=== PATIENT | male | born 1980 | race African-American/Black ===

== ENCOUNTER 2019-09-03 08:16 | Outpatient (CLI) | payer OTHER, SELFPAY ==
[2019-09-03 08:34] LABS: Basophils Percent Auto 0.6 % (0.2-1.2); Eosinophils Absolute Auto 0.1 K/mm3 (0-0.3); Eosinophils Percent Auto 1.5 % (0-4.4); Hematocrit 45.1 % (42.0-52.0); Hemoglobin 13.7 g/dL (14.0-18.0); Immature Granulocyte Absolute 0.02 K/mm3 (0.00-0.031); Immature Granulocyte Percent A 0.3 % (0-0.5); Lymphocytes Absolute Auto 2.11 K/mm3 (0.9-3.2); Lymphocytes Percent Auto 29.4 % (18.3-44.2); Mean Corpuscular HGB Conc 30.4 g/dl (32-36); Mean Corpuscular Hemoglobin 22.2 pg (26-34); Mean Corpuscular Volume 73.1 fl (80-100); Mean Platelet Volume 10.4 fl (7.4-10.4); Monocytes Absolute Auto 0.5 K/mm3 (0.1-0.6); Monocytes Percent Auto 6.7 % (2.6-8.5); Neutrophils Absolute Auto 4.4 K/mm3 (1.3-6.7); Neutrophils Percent Auto 61.5 % (45.5-73.1); Platelet Count Result 244 k/mm3 (150-375); Red Blood Count 6.17 M/mm3 (4.6-6.20); Red Cell Distribution Width 19.1 % (11.5-14.5); White Blood Count 7.2 K/mm3 (4.5-10.0)
[2019-09-03 12:05] LABS: Iron 74 ug/dL (49-181)
[2019-09-03 12:15] LABS: Blood Urea Nitrogen 17 mg/dL (9-20); Calcium 9.2 mg/dL (8.4-10.2); Carbon Dioxide 28 mmol/L (22-30); Chloride 103 mmol/L (98-107); Estimated Glomerular Filt Rate > 60; Glucose 127 mg/dL (75-110); Sodium 139 mmol/L (137-145)
[2019-09-03 12:17] LABS: Percent Iron Saturation 24 % (20-50)
== END 2019-09-03 08:17 | disposition home or self-care (01) ==
PROVIDERS: PCP Emergency Medicine; Visit Provider Internal Medicine Hematology & Oncology
DX: D64.9 Anemia, unspecified (principal)
CPT/HCPCS: 36415; 80048; 82728; 83540; 83550; 85025

== ENCOUNTER 2020-03-02 10:52 | Outpatient (CLI) | payer OTHER, SELFPAY ==
[2020-03-02 11:15] LABS: Basophils Percent Auto 0.6 % (0.2-1.2); Eosinophils Absolute Auto 0.1 K/mm3 (0-0.3); Eosinophils Percent Auto 1.1 % (0-4.4); Hemoglobin 13.9 g/dL (14.0-18.0); Immature Granulocyte Absolute 0.01 K/mm3 (0.00-0.031); Immature Granulocyte Percent A 0.2 % (0-0.5); Lymphocytes Percent Auto 31.2 % (18.3-44.2); Mean Corpuscular HGB Conc 30.2 g/dl (32-36); Mean Corpuscular Hemoglobin 22.2 pg (26-34); Mean Corpuscular Volume 73.6 fl (80-100); Mean Platelet Volume 10.2 fl (7.4-10.4); Monocytes Absolute Auto 0.5 K/mm3 (0.1-0.6); Monocytes Percent Auto 8.4 % (2.6-8.5); Neutrophils Absolute Auto 3.2 K/mm3 (1.3-6.7); Neutrophils Percent Auto 58.5 % (45.5-73.1); Platelet Count Result 253 k/mm3 (150-375); Red Blood Count 6.25 M/mm3 (4.6-6.20); White Blood Count 5.5 K/mm3 (4.5-10.0)
[2020-03-02 12:47] LABS: Anion Gap 7 mmol/L (8-16); Blood Urea Nitrogen 15 mg/dL (9-20); Calcium 9.7 mg/dL (8.4-10.2); Carbon Dioxide 31 mmol/L (22-30); Chloride 102 mmol/L (98-107); Estimated Glomerular Filt Rate > 60; Glucose 120 mg/dL (75-110); Potassium 4.3 mmol/L (3.4-5.0); Sodium 140 mmol/L (137-145)
[2020-03-02 15:49] LABS: Iron 68 ug/dL (49-181)
[2020-03-02 16:01] LABS: Percent Iron Saturation 22 % (20-50)
== END 2020-03-02 10:53 | disposition home or self-care (01) ==
PROVIDERS: PCP Emergency Medicine; Visit Provider Internal Medicine Hematology & Oncology
DX: D64.9 Anemia, unspecified (principal)
CPT/HCPCS: 36415; 80048; 82728; 83540; 83550; 85025

== ENCOUNTER 2020-08-23 13:39 | Outpatient (CLI) | payer OTHER, SELFPAY ==
[2020-08-23 13:56] LABS: Basophils Percent Auto 0.5 % (0.2-1.2); Eosinophils Percent Auto 0.7 % (0-4.4); Hematocrit 44.5 % (42.0-52.0); Hemoglobin 13.8 g/dL (14.0-18.0); Immature Granulocyte Absolute 0.02 K/mm3 (0.00-0.031); Immature Granulocyte Percent A 0.4 % (0-0.5); Lymphocytes Absolute Auto 1.54 K/mm3 (0.9-3.2); Lymphocytes Percent Auto 28.2 % (18.3-44.2); Mean Corpuscular Hemoglobin 22.6 pg (26-34); Mean Platelet Volume 10.8 fl (7.4-10.4); Monocytes Absolute Auto 0.6 K/mm3 (0.1-0.6); Monocytes Percent Auto 11.7 % (2.6-8.5); Neutrophils Absolute Auto 3.2 K/mm3 (1.3-6.7); Neutrophils Percent Auto 58.5 % (45.5-73.1); Platelet Count Result 253 k/mm3 (150-375); Red Cell Distribution Width 18.1 % (11.5-14.5); White Blood Count 5.5 K/mm3 (4.5-10.0)
[2020-08-23 17:36] LABS: Iron 62 ug/dL (49-181)
[2020-08-23 17:38] LABS: Alanine Aminotransferase 24 U/L (4-50); Albumin Level 4.1 g/dL (3.5-5.1); Alkaline Phosphatase 47 U/L (38-126); Anion Gap 9 mmol/L (8-16); Aspartate Amino Transferase 19 U/L (17-59); Bilirubin,Total 0.4 mg/dL (0.2-1.3); Blood Urea Nitrogen 15 mg/dL (9-20); Calcium 9.8 mg/dL (8.4-10.2); Carbon Dioxide 27 mmol/L (22-30); Chloride 105 mmol/L (98-107); Estimated Glomerular Filt Rate > 60; Glucose 104 mg/dL (75-110); Potassium 4.1 mmol/L (3.4-5.0); Sodium 141 mmol/L (137-145)
[2020-08-23 17:46] LABS: Percent Iron Saturation 22 % (20-50)
== END 2020-08-23 13:40 | disposition home or self-care (01) ==
LOC: ANHLAB 13:46
PROVIDERS: PCP Emergency Medicine; Visit Provider Internal Medicine Hematology & Oncology
DX: D64.9 Anemia, unspecified (principal); D56.3 Thalassemia minor
CPT/HCPCS: 36415; 80053; 82728; 83540; 83550; 85025

== ENCOUNTER 2022-03-14 09:05 | Outpatient (CLI) | payer OTHER, SELFPAY ==
[2022-03-14 14:09] LABS: Basophils Percent Auto 0.6 % (0.2-1.2); Eosinophils Absolute Auto 0.1 K/mm3 (0-0.3); Eosinophils Percent Auto 1.4 % (0-4.4); Hematocrit 42.8 % (42.0-52.0); Hemoglobin 13.3 g/dL (14.0-18.0); Immature Granulocyte Absolute 0.02 K/mm3 (0.00-0.031); Immature Granulocyte Percent A 0.4 % (0-0.5); Lymphocytes Absolute Auto 1.53 K/mm3 (0.9-3.2); Lymphocytes Percent Auto 31.5 % (18.3-44.2); Mean Corpuscular HGB Conc 31.1 g/dl (32-36); Mean Corpuscular Hemoglobin 23.3 pg (26-34); Mean Corpuscular Volume 74.8 fl (80-100); Mean Platelet Volume 11.7 fl (7.4-10.4); Monocytes Absolute Auto 0.4 K/mm3 (0.1-0.6); Monocytes Percent Auto 8.6 % (2.6-8.5); Neutrophils Absolute Auto 2.8 K/mm3 (1.3-6.7); Neutrophils Percent Auto 57.5 % (45.5-73.1); Platelet Count Result 209 k/mm3 (150-375); Red Blood Count 5.72 M/mm3 (4.6-6.20); Red Cell Distribution Width 17.2 % (11.5-14.5); White Blood Count 4.9 K/mm3 (4.5-10.0)
[2022-03-14 16:19] LABS: Iron 57 ug/dL (49-181)
[2022-03-14 16:22] LABS: Alanine Aminotransferase 40 U/L (6-50); Albumin Level 4.2 g/dL (3.5-5.1); Alkaline Phosphatase 53 U/L (38-126); Anion Gap 6 mmol/L (8-16); Aspartate Amino Transferase 23 U/L (17-59); Bilirubin,Total 0.3 mg/dL (0.2-1.3); Blood Urea Nitrogen 13 mg/dL (9-20); Calcium 8.7 mg/dL (8.4-10.2); Carbon Dioxide 31 mmol/L (22-30); Chloride 104 mmol/L (98-107); Estimated Glomerular Filt Rate > 60; Glucose 93 mg/dL (65-110); Potassium 3.9 mmol/L (3.4-5.0); Sodium 141 mmol/L (137-145)
[2022-03-14 16:29] LABS: Percent Iron Saturation 21 % (20-50)
== END 2022-03-14 09:06 | disposition home or self-care (01) ==
LOC: ANHLAB 09:08
PROVIDERS: PCP Emergency Medicine; Visit Provider Internal Medicine Hematology & Oncology
DX: D50.8 Other iron deficiency anemias (principal)
CPT/HCPCS: 36415; 80053; 82728; 83540; 83550; 85025

== ENCOUNTER 2023-05-02 12:26 | Outpatient (CLI) | payer OTHER, SELFPAY ==
[2023-05-02 12:41] LABS: Basophils Percent Auto 0.6 % (0.2-1.2); Eosinophils Absolute Auto 0.1 K/mm3 (0-0.3); Eosinophils Percent Auto 1.3 % (0-4.4); Hematocrit 44.7 % (42.0-52.0); Hemoglobin 13.8 g/dL (14.0-18.0); Immature Granulocyte Absolute 0.01 K/mm3 (0.00-0.031); Immature Granulocyte Percent A 0.2 % (0-0.5); Lymphocytes Absolute Auto 1.56 K/mm3 (0.9-3.2); Lymphocytes Percent Auto 33.2 % (18.3-44.2); Mean Corpuscular HGB Conc 30.9 g/dl (32-36); Mean Corpuscular Hemoglobin 22.7 pg (26-34); Mean Corpuscular Volume 73.4 fl (80-100); Mean Platelet Volume 10.4 fl (7.4-10.4); Monocytes Absolute Auto 0.4 K/mm3 (0.1-0.6); Monocytes Percent Auto 9.4 % (2.6-8.5); Neutrophils Absolute Auto 2.6 K/mm3 (1.3-6.7); Neutrophils Percent Auto 55.3 % (45.5-73.1); Platelet Count Result 218 k/mm3 (150-375); Red Blood Count 6.09 M/mm3 (4.6-6.20); White Blood Count 4.7 K/mm3 (4.5-10.0)
[2023-05-02 12:55] LABS: Anisocytosis 1+ (NORMAL); Platelet Estimate Adequate (Adequate); Poikilocytosis 1+ (NORMAL); Schistocytes None Seen (NORMAL); Target Cells 1+ (NORMAL)
[2023-05-02 15:42] LABS: Iron 66 ug/dL (49-181)
[2023-05-02 15:49] LABS: Alanine Aminotransferase 21 U/L (6-50); Alkaline Phosphatase 51 U/L (38-126); Anion Gap 5 mmol/L (8-16); Aspartate Amino Transferase 19 U/L (17-59); Bilirubin,Total 0.7 mg/dL (0.2-1.3); Blood Urea Nitrogen 18 mg/dL (9-20); Calcium 9.3 mg/dL (8.4-10.2); Carbon Dioxide 32 mmol/L (22-30); Chloride 104 mmol/L (98-107); Estimated Glomerular Filt Rate > 60; Glucose 84 mg/dL (65-110); Sodium 141 mmol/L (137-145)
[2023-05-02 15:54] LABS: Percent Iron Saturation 24 % (20-50)
== END 2023-05-02 12:27 | disposition home or self-care (01) ==
LOC: ANHLAB 12:27
PROVIDERS: PCP Emergency Medicine; Visit Provider Internal Medicine Hematology & Oncology
DX: D50.8 Other iron deficiency anemias (principal)
CPT/HCPCS: 36415; 80053; 82607; 82728; 82746; 83540; 83550; 85025

== ENCOUNTER 2024-05-02 10:32 | Outpatient (CLI) | payer OTHER, SELFPAY ==
[2024-05-02 10:46] LABS: Hemoglobin 13.7 g/dL (14.0-18.0); Mean Corpuscular HGB Conc 30.4 g/dl (32-36); Mean Corpuscular Hemoglobin 22.7 pg (26-34); Mean Corpuscular Volume 74.5 fl (80-100); Mean Platelet Volume 10.8 fl (7.4-10.4); Platelet Count Result 228 k/mm3 (150-375); Red Blood Count 6.04 M/mm3 (4.6-6.20); White Blood Count 5.2 K/mm3 (4.5-10.0)
--- OUTSIDE RECORDS SUMMARY | 2024-05-02 10:48 | XMS_ITS | Referral Summary ---
Author Organization [facility] Address [address] [place] [address] Care Team Providers Care Plumbing Warehouse Helper Name Role Phone John Drummond MD Primary Care Provider [phone] Source Comments [facility],non-owned Affiliates and Associated Physician Practices is amultiple site organization consisting of ambulatory clinics and hospital sitesin [place], [place], [place] and [place]. This disclosure is being madepursuant to the Care Everywhere program and may not contain all information available regarding this patient. Last updated 17.[facility] Encounters Date Type Department Care Team Description 04/29/2024 Telephone [facility] - Neurology [address] [facility] [place] [phone] Joellen Albarado MD Medication Prior Auth Request (Dalfampridine) 04/18/2024 Travel 04/18/2024 8:30 AM SOFT SUGAR CUTTER Office Visit [facility] - Cosmetic Dermatology [address] [place] [address] Fariha Javed DO Neoplasm of uncertain behavior of skin (Primary Dx) 02/20/2024 10:57 AM SOFT SUGAR CUTTER - 02/20/2024 11:59 PM SOFT SUGAR CUTTER Hospital Encounter [facility] [address] [place] [phone] Discharge Disposition: Home or Self Care 02/20/2024 Travel 02/20/2024 10:00 AM SOFT SUGAR CUTTER Office Visit [facility] - Neurology [address] [place] [phone] Joellen Albarado MD MS (multiple sclerosis) (HCC) (Primary Dx); Mass on back; Spasticity; Neurologic gait dysfunction 02/11/2024 Travel from Last 3 Months Allergies Active Allergy Reactions Criticality Noted Date Comments Shellfish Allergy Nausea and/or Vomiting Medium 2018 Medications * Be aware that medications may not be up to date on this document. Alwaysverify current medications with the patient. Medication Sig Dispensed Refills Start Date End Date Status folic acid (FOLVITE) 1 MG tablet Take 1 (one) tablet by mouth once daily Active sildenafil (REVATIO) 20 MG tablet Take 1 (one) tablet by mouth once daily as needed 06/06/2020 Active lisinopril (Prinivil; Zestril) 10 MG tablet Take 1 (one) tablet by mouth once daily 04/11/2022 Active baclofen (Lioresal) 10 MG tabletIndications :MS (multiple sclerosis) (HCC),Spasticity Take 2 (two) tablets by mouth once daily May cause drowsiness. 60 tablet 11 02/20/2024 Active dalfampridine ER (Ampyra) 10 MG tabletIndications :MS (multiple sclerosis) (HCC) Take 1 (one) tablet by mouth 2 times daily 180 tablet 4 02/20/2024 Active lisinopril (PRINIVIL; ZESTRIL) 20 MG tablet Take 1 tablet by mouth once daily 05/07/2018 04/18/2024 Discontinued (List Clean-Up) omeprazole (PRILOSEC) 20 MG capsule TAKE 1 CAPSULE BY MOUTH ONCE DAILY 30 MINUTES BEFORE MORNING MEAL 06/21/2020 04/18/2024 Discontinued (List Clean-Up) Active Problems Problem Noted Date Diagnosed Date HTN (hypertension) 05/05/2018 DM (diabetes mellitus) 05/05/2018 Hyperlipidemia 05/05/2018 Low back pain 05/05/2018 MRSA (methicillin resistant staph aureus) cultur e positive 05/05/2018 Multiple sclerosis 05/01/2018 Social History Tobacco Use Types Packs/Day Years Used Date Smoking Tobacco: Former Cigarettes Smokeless Tobacco: Never Tobacco Cessation:Counseling Given: Not Answered Alcohol Use Standard Drinks/Week Comments Yes 0 (1 standard drink = 0.6 oz pur e alcohol) occassionally- rarely Sex and Gender Information Value Date Recorded Sex Assigned at Not on file Gender Identity Not on file Sexual Orientation Not on file Last Filed Vital Signs Vital Sign Reading Time Taken Comments Blood Pressure 122/86 02/20/2024 9:38 AM SOFT SUGAR CUTTER Pulse 78 02/20/2024 9:38 AM SOFT SUGAR CUTTER Temperature 36.6 C (97.8 F) 12/07/2023 8:00 AM CDT Respiratory Rate 20 12/07/2023 8:00 AM CDT Oxygen Saturation 98% 02/20/2024 9:38 AM SOFT SUGAR CUTTER Inhaled Oxygen Concentration - - Weight 147.4 kg (325 lb) 02/20/2024 9:38 AM SOFT SUGAR CUTTER Height 193 cm (6' 4 ) 08/31/2023 2:10 PM CDT Body Mass Index 39.56 08/31/2023 2:10 PM CDT Functional Status Functional Status Response Date of Assess ment Is person deaf or have serious hearing difficult y? No 05/09/2018 Is person blind or have serious difficulty seein g? No 05/09/2018 Does person have serious dif ficulty walking/climbing stairs? Yes 05/09/2018 Does person have difficulty dressing/bathing? Ye s 05/09/2018 Does person have difficulty doing errands alone? Yes 05/09/2018 Cognitive Status Response Date of Assessm ent Does person have difficulty concentrating/remembering/making decisions? No 05/09/2018 Plan of Treatment Upcoming Encounters Date Type Department Care Team (Late st Contact Info) Description 05/23/2024 8:50 AM SOFT SUGAR CUTTER Appointment [facility] [address] [place] [phone] John Drummond MD [address] [place] [address] Procedures Procedure Name Priority Date/Time Associated Diagnosis Comments FLOW CYTOMETRY RITUXAN BLOOD Routine 02/20/2024 11:50 AM SOFT SUGAR CUTTER MS (multiple sclerosis) (HCC) COMPREHENSIVE METABOLIC PANEL Routine 02/20/2024 11:50 AM SOFT SUGAR CUTTER MS (multiple sclerosis) (HCC) CBC W AUTO DIFFERENTIAL Routine 02/20/2024 11:50 AM SOFT SUGAR CUTTER MS (multiple sclerosis) (HCC) HEPATITIS C ANTIBODY Routine 01/24/2019 5:23 PM SOFT SUGAR CUTTER Multiple sclerosis (HCC) HEMOGLOBIN A1C Routine 05/05/2018 3:48 AM SOFT SUGAR CUTTER from Last 3 Months or Most Recently Relevant to Health Maintenance Results * FLOW CYTOMETRY RITUXAN BLOOD (02/20/2024 11:50 AM SOFT SUGAR CUTTER) Reason for test MS (multiple sclerosis) (HCC) 340 02/20/2024 3:59 PM [facility] Client Specimen ID # [id number] 02/20/2024 3:59 PM [facility] Number of Markers 7 02/20/2024 3:59 PM [facility] Flow Cytometry Results Differential Result Comment WBC Count /uL 4,900 % Lymphocytes 39 Lymphocyte Count u/L 1,911 Cell Region A: Lymphocytes Surface Marker Results % Absolute Count (cells/uL) CD3 79 1,510 CD3+CD4+ 52 994 CD3+CD8+ 26 497 CD4:CD8 Ratio 2.00 CD19 0 0 CD20 0 0 CD45 100 1,911 CD56 19 363 02/20/2024 3:59 PM [facility] Flow Cytometry Interpretation Testing is technical only and does not require an interpretation of results. 02/20/2024 3:59 PM [facility] Reference Range Adult Normal Reference Range Adult (> 18 years) CD3 54-84 % CD4 33-63 % CD8 12-39 % CD19 5-19 % CD56 6-26 % CD4+CD45RA+ 30-50 % CD4+CD45RO+ 17-42 % CD19+CD27+ 7-48 % CD19+CD27+IgD+ 7-29 % CD19+CD27+IgD- 3-23 % CD19+YH34-AaD+ 29-93 % % 02/20/2024 3:59 PM [facility] Disclaimer Test performed at [facility], [address] [place] [address], [id number]. This test was developed and its performance characteristics determined by the Flow Cytometry Laboratory. It has not been cleared by the [place] Food and Drug Administration (FDA). The FDA has determined that such clearance or approval is not necessary. This test is used for clinical purposes. It should not be regarded as investigational or for research. This laboratory is regulated under the Clinical Laboratory Improvement Amendments of 1998 (CLIA) as a qualified to perform high complexity clinical testing. By law [place], CD4 lymphocyte counts on patients with HIV infection must be reported by the physician to the [facility] authority. 02/20/2024 3:59 PM [facility] Embedded Images 3:59 PM [facility] Blood BLOOD SPECIMEN / Unknown Lab Venipuncture / Unknown 02/20/2024 11:50 AM SOFT SUGAR CUTTER 02/20/2024 1:58 PM SOFT SUGAR CUTTER Joellen Albarado MD LAB - PATHOLOGY/CY TOLOGY ORDERABLES Performing Organization Address [facility] de Phone Number [facility] [address] [phone] * (ABNORMAL) CBC W/ DIFFERENTIAL (02/20/2024 11:50 AM SOFT SUGAR CUTTER) WBC 4.9 4.0 - 10.7 x10E9/L 02/20/2024 12:06 PM [facility] RBC Count 6.32(H) 4.30 - 5.80 x10E12/L 02/20/2024 12:06 PM [facility] Hemoglobin 14.1 13.3 - 17.5 g/dL 02/20/2024 12:06 PM [facility] Hematocrit 45.6 38.7 - 51.1 % 02/20/2024 12:06 PM [facility] MCV 72.2(L) 80.0 - 98.0 fL 02/20/2024 12:06 PM [facility] MCH 22.3(L) 26.7 - 33.6 pg 02/20/2024 12:06 PM [facility] MCHC 30.9(L) 31.7 - 36.3 g/dL 02/20/2024 12:06 PM [facility] RDW-CV 18.2(H) 11.3 - 14.8 % 02/20/2024 12:06 PM [facility] Platelet Count 242 150 - 420 x10E9/L 02/20/2024 12:06 PM [facility] MPV 10.5 7.8 - 11.4 fL 02/20/2024 12:06 PM [facility] Neutrophil % 53.2 41.0 - 74.0 % 02/20/2024 12:06 PM [facility] Lymphocyte % 34.6 17.0 - 47.0 % 02/20/2024 12:06 PM [facility] Monocyte % 9.3 3.0 - 11.0 % 02/20/2024 12:06 PM [facility] Eosinophil % 1.9 0.0 - 7.0 % 02/20/2024 12:06 PM [facility] Basophil % 0.8 0.0 - 1.6 % 02/20/2024 12:06 PM [facility] Immature Granulocytes % 0.2 0.0 - 1.0 % 02/20/2024 12:06 PM [facility] Neutrophil Absolute 2.58 1.60 - 7.50 x10E9/L 02/20/2024 12:06 PM [facility] Lymphocyte Absolute 1.68 1.00 - 4.40 x10E9/L 02/20/2024 12:06 PM [facility] Monocyte Absolute 0.45 0.15 - 1.00 x10E9/L 02/20/2024 12:06 PM [facility] Eosinophil Absolute 0.09 0.00 - 0.60 x10E9/L 02/20/2024 12:06 PM [facility] Basophil Absolute 0.04 0.00 - 0.13 x10E9/L 02/20/2024 12:06 PM [facility] Blood BLOOD SPECIMEN / Unknown Lab Venipuncture / Unknown 02/20/2024 11:50 AM SOFT SUGAR CUTTER 02/20/2024 12:00 PM SOFT SUGAR CUTTER Joellen Albarado MD LAB - HEMATOLOGY O RDERABLES [facility] [address] [place] [address], [facility] [phone] * (ABNORMAL) COMPREHENSIVE METABOLIC PANEL (02/20/2024 11:50 AM SOFT SUGAR CUTTER) BUN 11 7 - 26 mg/dL 02/20/2024 12:36 PM [facility] Creatinine 1.26(H) 0.71 - 1.16 mg/dL 02/20/2024 12:36 PM [facility] Sodium 142 136 - 145 mmol/L 02/20/2024 12:36 PM [facility] Potassium 4.0 3.5 - 4.5 mmol/L 02/20/2024 12:36 PM [facility] Chloride 106 98 - 107 mmol/L 02/20/2024 12:36 PM [facility] CO2 28 22 - 29 mmol/L 02/20/2024 12:36 PM [facility] Glucose 91 70 - 99 mg/dL 02/20/2024 12:36 PM [facility] Calcium 9.0 8.4 - 10.2 mg/dL 02/20/2024 12:36 PM [facility] Protein Total 7.4 6.0 - 8.3 g/dL 02/20/2024 12:36 PM [facility] Albumin 3.9 3.4 - 5.0 g/dL 02/20/2024 12:36 PM [facility] Bilirubin Total 0.6 0.2 - 1.2 mg/dL 02/20/2024 12:36 PM [facility] Alkaline Phosphatase 54 40 - 150 U/L 02/20/2024 12:36 PM [facility] ALT 28 5 - 55 U/L 02/20/2024 12:36 PM [facility] AST 14 5 - 34 U/L 02/20/2024 12:36 PM [facility] Anion Gap 8 6 - 16 02/20/2024 12:36 PM [facility] BUN/Creatinine Ratio 9 7 - 23 02/20/2024 12:36 PM [facility] Osmolality Calculated 293 275 - 295 mOsm/kg 02/20/2024 12:36 PM [facility] Albumin/Globulin Ratio 1.1 1.1 - 2.3 02/20/2024 12:36 PM [facility] eGFR by CKD-EPI 73(L) >=90 mL/min/1.7 3 m2 02/20/2024 12:36 PM [facility] Blood BLOOD SPECIMEN / Unknown Lab Venipuncture / Unknown 02/20/2024 11:50 AM SOFT SUGAR CUTTER 02/20/2024 12:00 PM SOFT SUGAR CUTTER Joellen Albarado MD LAB - CHEMISTRY OR DERABLES Performing Organization Address City/[facility]/ZIP Co de Phone Number [facility] [address] [place] [address], [facility] [phone] * HEPATITIS C ANTIBODY (01/24/2019 5:23 PM SOFT SUGAR CUTTER) Pathologist [facility] Hepatitis C Antibody Non-react ame Non-reac tive 01/24/2019 6:14 PM [facility] Comment: Hepatitis C Antibody screen indicates no serologic evidence of past or current infection with Hepatitis C Virus. Patients with unexplained liver disease who are immunocompromised or suspected of having acute Hepatitis C infection may benefit from Nucleic Acid Test (ROLAND) for Hepatitis C Viral RNA to confirm Hepatitis C status. Blood BLOOD SPECIMEN / Unknown Lab Venipuncture / Unknown 01/24/2019 5:23 PM SOFT SUGAR CUTTER 01/24/2019 5:34 PM SOFT SUGAR CUTTER Arsh Wang MD LAB - CHEMISTRY ORDERABLES Performing Organization Address City/[facility]/ZIP Co de Phone Number [facility] [address] [place] [address], [facility] [phone] * HEMOGLOBIN A1C (05/05/2018 3:48 AM SOFT SUGAR CUTTER) Hemoglobin A1c 6.4 % 05/06/2018 10:32 AM [facility] Comment:Hemoglobin variant d etected. Abnormal hemoglobin may not form glycated product at the same rate as hemoglobin A and/or hemoglobin variant may interfere with the accurate measurement of HbA1C. Consider measurement of HbA1C by alternative method. Recommend hemoglobin electrophoresis to evaluate the variant hemoglobin if clinically indicated. Estimated Average Glucose 137 mg/dL 05/06/2018 10:32 AM SOFT SUGAR CUTTER [facility] Comment: HbA1c Interpretation: Treatment target values recommended by ADA and other clinical organizations should be used to evaluate metabolic control in patients. Treatment Target Values: Normal : < 5.7% Pre-diabetes: 5.7-6.4% Diabetes: Equal to or greater than 6.5% Reference: [place] [employer] Standards of Care in Diabetes -2014 In patients 70 years and older consider HbA1c target range of 7.0-7.5% Reference: Diabetes Mellitus in Older People: Position Statement on behalf of the International Association of Gerontology and Geriatrics (IAGG), the Diabetes Working [employer] Party for Older People (EDWPOP), and the International Task Force of Experts in Diabetes. Melchor Bingham, et al. J [place] [employer]. 2012 Test results diagnostic of diabetes should be repeated for confirmation. The Sebia Capillary 2 assay for the measurement of HbA1c is a National Glycohemoglobin Standardization Program (NGSP)certified method. Blood BLOOD SPECIMEN / Unknown Lab Venipuncture / Unknown 05/05/2018 3:48 AM SOFT SUGAR CUTTER 05/05/2018 3:54 AM SOFT SUGAR CUTTER Magdiel Thompson MD LAB - CHEMISTRY NEHAL SCHROEDER [facility] Organization Address City/State/ZIP Co de Phone Number [address] [phone] from Last 3 Months or Most Recently Relevant to Health Maintenance Advance Directives * Full Code (Latest Code Status on File) Date Activated Date Inactivated Comments 05/05/2018 12:50 AM 05/09/2018 3:01 PM Care Teams Plumbing Warehouse Helper Relationship Specialty Start Date End Date John Drummond MD [address] [place] [id number] PCP - General 04/16/18
--- OUTSIDE RECORDS SUMMARY | 2024-05-02 10:48 | XMS_ITS | Patient Health Summary ---
Author Organization [facility] Address [address] [place] [address] Care Team Providers Care Grain Picker Name Role Phone John Drummond MD Primary Care Provider [phone] Note from [facility],non-owned Affiliates and Associated Physician Practices is amultiple site organization consisting of ambulatory clinics and hospital sitesin [place], [place], [place] and [place]. This disclosure is being madepursuant to the Care Everywhere program and may not contain all information available regarding this patient. Last updated 17.[facility] Allergies * Shellfish Allergy(Nausea and/or Vomiting) -Medium Criticality Medications * Be aware that medications may not be up to date on this document. Alwaysverify current medications with the patient. * folic acid (FOLVITE) 1 MG tablet Take 1 (one) tablet by mouth once daily * sildenafil (REVATIO) 20 MG tablet(Started 06/06/2020) Take 1 (one) tablet by mouth once daily as needed * lisinopril (Prinivil; Zestril) 10 MG tablet(Started 04/11/2022) Take 1 (one) tablet by mouth once daily * baclofen (Lioresal) 10 MG tablet(Started 02/20/2024) Take 2 (two) tablets by mouth once daily May cause drowsiness. 11 refills by 02/19/2025 * dalfampridine ER (Ampyra) 10 MG tablet(Started 02/20/2024) Take 1 (one) tablet by mouth 2 times daily 4 refills by 02/19/2025 Ended Medications* lisinopril (PRINIVIL; ZESTRIL) 20 MG tablet(Started 05/07/2018)(Discontinued) Take 1 tablet by mouth once daily * omeprazole (PRILOSEC) 20 MG capsule(Started 06/21/2020)(Discontinued) TAKE 1 CAPSULE BY MOUTH ONCE DAILY 30 MINUTES BEFORE MORNING MEAL Active Problems Problem Noted Date Diagnosed Date [...] Comments Blood Pressure 122/86 02/20/2024 9:38 AM DELIVERY MAN Pulse 78 02/20/2024 9:38 AM DELIVERY MAN Temperature 36.6 C (97.8 F) 12/07/2023 8:00 AM CDT Respiratory Rate 20 12/07/2023 8:00 AM CDT Oxygen Saturation 98% 02/20/2024 9:38 AM DELIVERY MAN Inhaled Oxygen Concentration - - Weight 147.4 kg (325 lb) 02/20/2024 9:38 AM DELIVERY MAN Height 193 cm (6' 4 ) 08/31/2023 2:10 PM CDT Body Mass Index 39.56 08/31/2023 2:10 PM CDT Procedures * FLOW CYTOMETRY RITUXAN BLOOD(Performed 02/20/2024) Performed for MS (multiple sclerosis) ([facility]) * COMPREHENSIVE METABOLIC PANEL(Performed 02/20/2024) Performed for MS (multiple sclerosis) ([facility]) * CBC W AUTO DIFFERENTIAL(Performed 02/20/2024) Performed for MS (multiple sclerosis) ([facility]) * CBC W AUTO DIFFERENTIAL(Performed 11/23/2023) * MRI THORACIC SPINE WWO CONT(Performed 09/23/2023) Performed for MS (multiple sclerosis) ([facility]) * MRI CERVICAL SPINE WWO CONT(Performed 09/23/2023) Performed for MS (multiple sclerosis) ([facility]) * MRI BRAIN WWO CONTRAST(Performed 09/23/2023) Performed for MS (multiple sclerosis) ([facility]) * CREATININE - POCT INTERFACED(Performed 09/23/2023) * FLOW CYTOMETRY RITUXAN BLOOD(Performed 11/10/2022) Performed for MS (multiple sclerosis) ([facility]), On rituximab therapy * COMPREHENSIVE METABOLIC PANEL(Performed 11/10/2022) Performed for MS (multiple sclerosis) ([facility]), On rituximab therapy * CBC W AUTO DIFFERENTIAL(Performed 11/10/2022) Performed for MS (multiple sclerosis) ([facility]), On rituximab therapy * IGM BLOOD(Performed 05/05/2022) Performed for Visit for monitoring Rituxan therapy, MS (multiple sclerosis) ([facility]) * IGA BLOOD(Performed 05/05/2022) Performed for Visit for monitoring Rituxan therapy, MS (multiple sclerosis) ([facility]) * IGG BLOOD(Performed 05/05/2022) Performed for Visit for monitoring Rituxan therapy, MS (multiple sclerosis) ([facility]) * COMPREHENSIVE METABOLIC PANEL(Performed 05/05/2022) Performed for Visit for monitoring Rituxan therapy, MS (multiple sclerosis) ([facility]) * CBC W AUTO DIFFERENTIAL(Performed 05/05/2022) Performed for Visit for monitoring Rituxan therapy, MS (multiple sclerosis) ([facility]) * MRI BRAIN WWO CONTRAST(Performed 10/23/2021) Performed for MS (multiple sclerosis) ([facility]) * VITAMIN D 25-HYDROXY(Performed 10/03/2021) Performed for MS (multiple sclerosis) ([facility]), Hypovitaminosis D * COMPREHENSIVE METABOLIC PANEL(Performed 10/03/2021) Performed for MS (multiple sclerosis) ([facility]) * CBC W AUTO DIFFERENTIAL(Performed 10/03/2021) Performed for MS (multiple sclerosis) ([facility]) * COMPREHENSIVE METABOLIC PANEL(Performed 04/08/2021) Performed for Multiple sclerosis ([facility]), Visit for monitoring Rituxan therapy * IMMUNOGLOBULINS IGG/IGM/IGA PANEL(Performed 03/30/2021) Performed for Multiple sclerosis ([facility]), Visit for monitoring Rituxan therapy * COMPREHENSIVE METABOLIC PANEL(Performed 03/30/2021) Performed for MS (multiple sclerosis) (HCC) * CBC W AUTO DIFFERENTIAL(Performed 03/30/2021) Performed for MS (multiple sclerosis) (HCC) * FLOW CYTOMETRY RITUXAN BLOOD(Performed 09/03/2020) Performed for Visit for monitoring Rituxan therapy * COMPREHENSIVE METABOLIC PANEL(Performed 09/03/2020) Performed for Multiple sclerosis (HCC) * CBC W AUTO DIFFERENTIAL(Performed 09/03/2020) Performed for Multiple sclerosis (HCC) * MRI BRAIN WWO CONTRAST(Performed 06/24/2020) Performed for Multiple sclerosis (HCC) * MRI CERVICAL SPINE WWO CONT(Performed 06/24/2020) Performed for Multiple sclerosis (HCC) * CREATININE - POCT INTERFACED(Performed 06/24/2020) * IGM BLOOD(Performed 03/05/2020) Performed for Visit for monitoring Rituxan therapy * IGG BLOOD(Performed 03/05/2020) Performed for Visit for monitoring Rituxan therapy * IGA BLOOD(Performed 03/05/2020) Performed for Visit for monitoring Rituxan therapy * COMPREHENSIVE METABOLIC PANEL(Performed 03/05/2020) Performed for Multiple sclerosis (HCC) * CBC W AUTO DIFFERENTIAL(Performed 03/05/2020) Performed for Multiple sclerosis (HCC) * MRI CERVICAL SPINE WWO CONT(Performed 02/15/2019) Performed for Multiple sclerosis (HCC) * MRI BRAIN WWO CONTRAST(Performed 02/15/2019) Performed for Multiple sclerosis (HCC) * MRI THORACIC SPINE WWO CONT(Performed 02/15/2019) Performed for Multiple sclerosis (HCC) * CREATININE BLOOD - POCT (IP) [facility](Performed 02/15/2019) Performed for Multiple sclerosis (HCC) * LAB MISC TEST(Performed 01/24/2019) Performed for Multiple sclerosis (HCC) * HEPATITIS C ANTIBODY(Performed 01/24/2019) Performed for Multiple sclerosis (HCC) * HEPATITIS B SURFACE ANTIBODY(Performed 01/24/2019) Performed for Multiple sclerosis (HCC) * QUANTIFERON-TB GOLD PLUS 4-TUBE(Performed 01/24/2019) Performed for Multiple sclerosis (HCC) * HEPATITIS B SURFACE ANTIGEN W RFLX CONFIRMATION(Performed 01/24/2019) Performed for Therapeutic drug monitoring * HEPATITIS B CORE ANTIBODY TOTAL(Performed 01/24/2019) Performed for Therapeutic drug monitoring * URINALYSIS AUTO - POINT OF CARE (AMB) [facility](Performed 01/17/2019) Performed for Urinary retention * MA MSR PVR U&/BLADD CAPCTY US NON(Performed 01/17/2019) Performed for Urinary retention * MA MSR PVR U&/BLADD CAPCTY US NON(Performed 12/03/2018) Performed for Urinary retention * CARDIAC EKG ORDER(Performed 06/06/2018) * CARDIAC EKG ORDER(Performed 05/13/2018) * CARDIAC EKG ORDER(Performed 05/13/2018) * GLUCOSE - POINT OF CARE(Performed 05/09/2018) * HEPATITIS B SURFACE ANTIBODY(Performed 05/09/2018) * GLUCOSE - POINT OF CARE(Performed 05/09/2018) * GLUCOSE - POINT OF CARE(Performed 05/09/2018) * GLUCOSE - POINT OF CARE(Performed 05/08/2018) * GLUCOSE - POINT OF CARE(Performed 05/08/2018) * GLUCOSE - POINT OF CARE(Performed 05/08/2018) * GLUCOSE - POINT OF CARE(Performed 05/08/2018) * TATIANNA VIRUS PCR QUALITATIVE(Performed 05/08/2018) * DIFFERENTIAL MANUAL(Performed 05/08/2018) * PT-INR [facility](Performed 05/08/2018) * CBC W AUTO DIFFERENTIAL(Performed 05/08/2018) * GLUCOSE - POINT OF CARE(Performed 05/07/2018) * GLUCOSE - POINT OF CARE(Performed 05/07/2018) * GLUCOSE - POINT OF CARE(Performed 05/07/2018) * GLUCOSE - POINT OF CARE(Performed 05/07/2018) * SYPHILIS ANTIBODY CASCADING REFLEX(Performed 05/07/2018) Performed for Multiple sclerosis (HCC), MRSA (methicillin resistant staph aureus) culture positive * VITAMIN E(Performed 05/07/2018) * VITAMIN D 25-HYDROXY(Performed 05/07/2018) * VITAMIN B12(Performed 05/07/2018) * HEPATIC FUNCTION PANEL(Performed 05/07/2018) * TSH(Performed 05/07/2018) * ERYTHROCYTE SEDIMENTATION RATE(Performed 05/07/2018) * SS-A (SJOGREN'S) ANTIBODY(Performed 05/07/2018) * SS-B (SJOGREN'S) ANTIBODY(Performed 05/07/2018) * TOMI BLOOD SCREEN W/REFLEX TITER(Performed 05/07/2018) * PT-INR [facility](Performed 05/07/2018) * CBC W AUTO DIFFERENTIAL(Performed 05/07/2018) * GLUCOSE - POINT OF CARE(Performed 05/07/2018) * GLUCOSE - POINT OF CARE(Performed 05/06/2018) * GLUCOSE - POINT OF CARE(Performed 05/06/2018) * LAB MISC TEST (NOT BLOOD)(Performed 05/06/2018) Performed for Multiple sclerosis (HCC) * GLUCOSE - POINT OF CARE(Performed 05/06/2018) * EKG 12-LEAD(Performed 05/06/2018) Performed for Multiple sclerosis (HCC) * GLUCOSE - POINT OF CARE(Performed 05/06/2018) * PT-INR [facility](Performed 05/06/2018) * CBC W AUTO DIFFERENTIAL(Performed 05/06/2018) * GLUCOSE - POINT OF CARE(Performed 05/06/2018) * GLUCOSE - POINT OF CARE(Performed 05/05/2018) * GLUCOSE - POINT OF CARE(Performed 05/05/2018) * LAB MISC TEST(Performed 05/05/2018) * CYTOLOGY NON-SPORT SHOE SPIKE ASSEMBLER PANEL (STL)(Performed 05/05/2018) Performed for Multiple sclerosis (HCC) * DIFFERENTIAL MANUAL FLUID(Performed 05/05/2018) * MYELIN BASIC PROTEIN CSF(Performed 05/05/2018) * CELL COUNT W DIFFERENTIAL CSF(Performed 05/05/2018) * PROTEIN CSF(Performed 05/05/2018) * GLUCOSE CSF(Performed 05/05/2018) * GRAM STAIN (LAB ORDERED)(Performed 05/05/2018) * CULTURE CSF+GRAM STAIN(Performed 05/05/2018) * CULTURE CSF+GRAM STAIN (BEAKER)(Performed 05/05/2018) * GLUCOSE - POINT OF CARE(Performed 05/05/2018) * URINALYSIS W/MICROSCOPIC NO CULTURE(Performed 05/05/2018) * GLUCOSE - POINT OF CARE(Performed 05/05/2018) * GLUCOSE - POINT OF CARE(Performed 05/05/2018) * HEMOGLOBIN A1C(Performed 05/05/2018) * TSH(Performed 05/05/2018) * PT-INR [facility](Performed 05/05/2018) * PHOSPHORUS BLOOD(Performed 05/05/2018) * MAGNESIUM BLOOD(Performed 05/05/2018) * CBC W AUTO DIFFERENTIAL(Performed 05/05/2018) * COMPREHENSIVE METABOLIC PANEL(Performed 05/05/2018) * GLUCOSE - POINT OF CARE(Performed 05/05/2018) Results * FLOW CYTOMETRY RITUXAN BLOOD (02/20/2024 11:50 AM DELIVERY MAN) Only the most recent of3 resultswithin the time period is included. Reason for test MS (multiple sclerosis) (HCC) 340 02/20/2024 3:59 PM [facility] Client Specimen ID # [id number] 02/20/2024 3:59 PM [facility] Number of Markers 7 02/20/2024 3:59 PM [facility] Flow Cytometry Results Differential Result Comment WBC Count /uL 4,900 % Lymphocytes 39 Lymphocyte Count u/L 1,911 Cell Region A: Lymphocytes Surface Marker Results % Absolute Count (cells/uL) CD3 79 1,510 CD3+CD4+ 52 994 CD3+CD8+ 26 497 CD4:CD8 Ratio 2.00 CD19 0 0 CD20 0 0 CD45 100 1,911 CD56 19 363 02/20/2024 3:59 PM [facility] Flow Cytometry Interpretation Testing is technical only and does not require an interpretation of results. 02/20/2024 3:59 PM [facility] Reference Range Adult Normal Reference Range Adult (> 18 years) CD3 54-84 % CD4 33-63 % CD8 12-39 % CD19 5-19 % CD56 6-26 % CD4+CD45RA+ 30-50 % CD4+CD45RO+ 17-42 % CD19+CD27+ 7-48 % CD19+CD27+IgD+ 7-29 % CD19+CD27+IgD- 3-23 % CD19+PP49-MaC+ 29-93 % % 02/20/2024 3:59 PM [facility] Disclaimer Test performed at [facility], [address] [place] [address], [id number]. This test was developed and its performance [...] perform high complexity clinical testing. By law [place], CD4 lymphocyte counts on patients with HIV infection must be reported by the physician to the [facility] authority. 02/20/2024 3:59 PM [facility] Embedded Images 3:59 PM [facility] Blood BLOOD SPECIMEN / Unknown Lab Venipuncture / Unknown 02/20/2024 11:50 AM DELIVERY MAN 02/20/2024 1:58 PM DELIVERY MAN Joellen Albarado MD LAB - PATHOLOGY/CY TOLOGY ORDERABLES Performing Organization Address City/State/[facility] Co de Phone Number [facility] [address] [phone] * (ABNORMAL) CBC W/ DIFFERENTIAL (02/20/2024 11:50 AM DELIVERY MAN) Only the most recent of12 resultswithin the time period is included. WBC 4.9 4.0 - 10.7 x10E9/L 02/20/2024 12:06 PM [facility] RBC Count 6.32(H) 4.30 - 5.80 x10E12/L 02/20/2024 12:06 PM [facility] Hemoglobin 14.1 13.3 - 17.5 g/dL 02/20/2024 12:06 PM [facility] Hematocrit 45.6 38.7 - 51.1 % 02/20/2024 12:06 PM [facility] MCV 72.2(L) 80.0 - 98.0 fL 02/20/2024 12:06 PM [facility] MCH 22.3(L) 26.7 - 33.6 pg 02/20/2024 12:06 PM [facility] MCHC 30.9(L) 31.7 - 36.3 g/dL 02/20/2024 12:06 PM [facility] RDW-CV 18.2(H) 11.3 - 14.8 % 02/20/2024 12:06 PM [facility] Platelet Count 242 150 - 420 x10E9/L 02/20/2024 12:06 PM [facility] MPV 10.5 7.8 - 11.4 fL 02/20/2024 12:06 PM [facility] Neutrophil % 53.2 41.0 - 74.0 % 02/20/2024 12:06 PM [facility] Lymphocyte % 34.6 17.0 - 47.0 % 02/20/2024 12:06 PM [facility] Monocyte % 9.3 3.0 - 11.0 % 02/20/2024 12:06 PM [facility] Eosinophil % 1.9 0.0 - 7.0 % 02/20/2024 12:06 PM [facility] Basophil % 0.8 0.0 - 1.6 % 02/20/2024 12:06 PM [facility] Immature Granulocytes % 0.2 0.0 - 1.0 % 02/20/2024 12:06 PM [facility] Neutrophil Absolute 2.58 1.60 - 7.50 x10E9/L 02/20/2024 12:06 PM [facility] Lymphocyte Absolute 1.68 1.00 - 4.40 x10E9/L 02/20/2024 12:06 PM [facility] Monocyte Absolute 0.45 0.15 - 1.00 x10E9/L 02/20/2024 12:06 PM [facility] Eosinophil Absolute 0.09 0.00 - 0.60 x10E9/L 02/20/2024 12:06 PM [facility] Basophil Absolute 0.04 0.00 - 0.13 x10E9/L 02/20/2024 12:06 PM [facility] Blood BLOOD SPECIMEN / Unknown Lab Venipuncture / Unknown 02/20/2024 11:50 AM DELIVERY MAN 02/20/2024 12:00 PM [facility] Joellen Albarado MD LAB - HEMATOLOGY O RDERABLES [address] [address], [facility] [phone] * (ABNORMAL) COMPREHENSIVE METABOLIC PANEL (02/20/2024 11:50 AM DELIVERY MAN) Only the most recent of9 resultswithin the time period is included. BUN 11 7 - 26 mg/dL 02/20/2024 12:36 PM [facility] Creatinine 1.26(H) 0.71 - 1.16 mg/dL 02/20/2024 12:36 PM [facility] Sodium 142 136 - 145 mmol/L 02/20/2024 12:36 PM [facility] Potassium 4.0 3.5 - 4.5 mmol/L 02/20/2024 12:36 PM [facility] Chloride 106 98 - 107 mmol/L 02/20/2024 12:36 PM [facility] CO2 28 22 - 29 mmol/L 02/20/2024 12:36 PM [facility] Glucose 91 70 - 99 mg/dL 02/20/2024 12:36 PM [facility] Calcium 9.0 8.4 - 10.2 mg/dL 02/20/2024 12:36 PM [facility] Protein Total 7.4 6.0 - 8.3 g/dL 02/20/2024 12:36 PM [facility] Albumin 3.9 3.4 - 5.0 g/dL 02/20/2024 12:36 PM [facility] Bilirubin Total 0.6 0.2 - 1.2 mg/dL 02/20/2024 12:36 PM [facility] Alkaline Phosphatase 54 40 - 150 U/L 02/20/2024 12:36 PM [facility] ALT 28 5 - 55 U/L 02/20/2024 12:36 PM [facility] AST 14 5 - 34 U/L 02/20/2024 12:36 PM [facility] Anion Gap 8 6 - 16 02/20/2024 12:36 PM [facility] BUN/Creatinine Ratio 9 7 - 23 02/20/2024 12:36 PM [facility] Osmolality Calculated 293 275 - 295 mOsm/kg 02/20/2024 12:36 PM [facility] Albumin/Globulin Ratio 1.1 1.1 - 2.3 02/20/2024 12:36 PM [facility] eGFR by CKD-EPI 73(L) >=90 mL/min/1.7 3 m2 02/20/2024 12:36 PM [facility] Blood BLOOD SPECIMEN / Unknown Lab Venipuncture / Unknown 02/20/2024 11:50 AM DELIVERY MAN 02/20/2024 12:00 PM DELIVERY MAN Joellen Albarado MD LAB - CHEMISTRY OR DERABLES [facility] [address] [place] [address], [facility] [phone] * MRI THORACIC SPINE WWO CONT (09/23/2023 5:36 PM CDT) Only the most recent of2 resultswithin the time period is included. Anatomical Region Laterality Modality Spine Magnetic Resonan ce 09/27/2023 11:1 1 PM CDT Impressions 09/30/2023 3:46 PM CDT IMPRESSION: MRI brain: 1.Multiple intracranial white matter lesions compatible with multiple sclerosis. No new T2 lesions and no new enhancing lesions. Mild parenchymal volume loss. MRI cervical and thoracic spine: 1.Scattered intramedullary lesions compatible with the clinical history of multiple sclerosis. No new T2 intramedullary lesions and no new enhancing intramedullary lesions. 2.Other Significant Cervical Spine Findings: Compared to the prior MRI from 06/24/2020, there has been interval increased size of the previously seen enhancing lesion in the subcutaneous soft tissues of the lower neck/upper back and development of additional adjacent smaller enhancing lesion. The pre-existing lesion now measures approximately 4.2 x 2.8 cm in the widest dimensions when measured on the sagittal image, (series 44, image 9), with ill-defined, infiltrative borders in the adjacent subcutaneous fat. There is induration and enhancement of the overlaying skin. Previously the lesion was defined and measured approximately 1.7 x 1.3 cm, (series 11, image 14). Additionally, there has been interval development of a smaller lesion inferior to the above-mentioned lesion that measures approximately 1.5 x 1.7 cm, (series 44, image 9), again with ill-defined infiltrative borders are identified along the deeper aspect. Findings are nonspecific however concerning for possible underlying neoplasm or infection. Clinical correlation is recommended. COMMUNICATION: Communicated with Dr. Jun Danielle via [employer] secure chat on at 3:40 PM > Interpreting Provider: Radha Reeves MD on 09/30/2023 3:46 PM Narrative 09/30/2023 3:46 PM CDT PROCEDURE: MRI BRAIN WWO CONTRAST, MRI CERVICAL SPINE WWO CONT, MRI THORACIC SPINE WWO CONT, DATE/TIME OF EXAM: 09/23/2023 5:36 PM, LOCATION [facility] INDICATION: G35: MS (multiple sclerosis) (HCC) ADDITIONAL CLINICAL INFORMATION: Ordering Provider Reason For Exam: Multiple sclerosis. Technologist Note: None. Additional: None. CONTRAST: GADOBUTROL 1 MMOL/ML IV [facility] SO:10 mL EXAMINATION: 1.Magnetic resonance imaging (MRI) of the brain without and with contrast 2.MRI of the cervical, thoracic, and lumbar spine without and with contrast HISTORY: G35: MS (multiple sclerosis) (HCC) TECHNIQUE: MRI of the brain, cervical, thoracic, and lumbar spine was performed prior to and following the uneventful administration of 10 mL intravenous Gadavist contrast according to a demyelination protocol. COMPARISON: MRI of the brain from 10/23/2021. FINDINGS: Brain: No evidence of acute or chronic hemorrhage is identified. No evidence of acute cerebral infarction is seen. There is mild cerebral volume loss with associated ex vacuo ventricular dilatation. No mass effect or midline shift is seen. There are multiple foci of hyperintensity on spin density, T2 and FLAIR within the white matter, compatible with the clinical diagnosis of multiple sclerosis. Lesions are seen in the periventricular white matter, in the corpus callosum, and along the ventral margin of the pamela and midbrain, grossly unchanged compared to prior. Several lesions demonstrate T1 hypointensity, compatible with MS black holes. No enhancing lesions are identified to suggest active demyelination. The sella appears normal. The posterior fossa and brainstem appear otherwise grossly stable. The visualized portions of the orbits appear grossly unremarkable. Limited evaluation of the optic nerves. This could be subtle increased FLAIR signal of the prechiasmatic optic nerves bilaterally, similar to the prior. There is mild paranasal sinus disease. The imaged mastoid air cells appear grossly clear. Normal flow voids are demonstrated in the carotid arteries and basilar artery. The calvarium appears normal. Cervical spine: The alignment is normal. Vertebral bodies are normal in height without evidence of compression fractures. Decreased T1 and T2 marrow signal of the cervical and visualized upper thoracic spine is a nonspecific finding but can be seen in the setting of anemia or bone marrow infiltration. Clinical correlation is recommended. The craniocervical junction appears normal. Redemonstration of extensive, patchy foci of hyperintensity are noted in the cervical and visualized upper thoracic cord on the T2, IR and axial T2-weighted images, compatible with the history of multiple sclerosis. No enhancing lesions are identified to suggest active demyelination. There is mild disc height loss at multiple levels. Diffuse disc bulge at the level of C5-C6 resulting in mild to moderate spinal canal stenosis. Mild disc bulge also noted at the level of C4-C5 and to a lesser extent C3-C4. No high-grade central canal stenosis is seen. There are varying degrees of mild facet osteoarthritis. There are varying degrees of mild uncovertebral joint osteoarthritis with the same degree of neural foraminal stenosis at these levels, worse at C5-C6, left more than right. Compared to the prior MRI from 06/24/2020, there has been interval increased size of the previously seen enhancing lesion in the subcutaneous soft tissues of the lower neck/upper back and development of additional adjacent smaller enhancing lesion. The pre-existing lesion now measures approximately 4.2 x 2.8 cm in the widest dimensions when measured on the sagittal image, (series 44, image 9), with ill-defined, infiltrative borders in the adjacent subcutaneous fat. There is induration and enhancement of the overlaying skin. Previously the lesion was defined and measured approximately 1.7 x 1.3 cm, (series 11, image 14). Additionally, there has been interval development of a smaller lesion inferior to the above-mentioned lesion that measures approximately 1.5 x 1.7 cm, (series 44, image 9), again with ill-defined infiltrative borders are identified along the deeper aspect. Findings are nonspecific however concerning for possible underlying neoplasm or infection. Clinical correlation is recommended. Normal flow voids are identified in the vertebral arteries. Thoracic spine: Noted artifacts on the postcontrast image. The alignment is maintained. Vertebral bodies are normal in height without evidence of compression fractures. Decreased T1 and T2 marrow signal is a nonspecific finding but can be seen in the setting of anemia or bone marrow infiltration. Clinical correlation is recommended. Extensive patchy foci of hyperintensity are noted in the thoracic cord on the T2, IR and axial T2-weighted images compatible with the history of multiple sclerosis. No abnormal enhancement is identified. The intervertebral discs appear normal. No central canal mild stenosis is seen. There is mild facet osteoarthritis at multiple levels. No high-grade neural foraminal stenosis is seen. No additional soft tissue abnormality is identified. Procedure Note Radha Reeves MD - 09/30/2023 PROCEDURE: MRI BRAIN WWO CONTRAST, MRI CERVICAL SPINE WWO CONT, MRI THORACIC SPINE WWO CONT, DATE/TIME OF EXAM: 09/23/2023 5:36 PM, [facility] INDICATION: G35: MS (multiple sclerosis) ([facility]) ADDITIONAL CLINICAL INFORMATION: Ordering Provider Reason For Exam: Multiple sclerosis. Technologist Note: None. Additional: None. CONTRAST: GADOBUTROL 1 MMOL/ML IV [facility] SO:10 mL EXAMINATION: 1.Magnetic resonance imaging (MRI) of the brain without and withcontrast 2.MRI of the cervical, thoracic, and lumbar spine without and withcontrast HISTORY: G35: MS (multiple sclerosis) (HCC) TECHNIQUE: MRI of the brain, cervical, thoracic, and lumbar spine was performed prior to and following the uneventful administration of 10 mL intravenous Gadavist contrast according to a demyelination protocol. COMPARISON: MRI of the brain from 10/23/2021. FINDINGS: Brain: No evidence of acute or chronic hemorrhage is identified. No evidence of acute cerebral infarction is seen. There is mild cerebral volume losswith associated ex vacuo ventricular dilatation. No mass effect or midlineshift is seen. There are multiple foci of hyperintensity on spin density, T2and FLAIR within the white matter, compatible with the clinical diagnosis of multiple sclerosis. Lesions are seen in the periventricular whitematter, in the corpus callosum, and along the ventral margin of the pamela and midbrain, grossly unchanged compared to prior. Several lesionsdemonstrate T1 hypointensity, compatible with MS black holes. No enhancing lesionsare identified to suggest active demyelination. The sella appears normal.The posterior fossa and brainstem appear otherwise grossly stable. The visualized portions of the orbits appear grossly unremarkable.Limited evaluation of the optic nerves. This could be subtle increased FLAIRsignal of the prechiasmatic optic nerves bilaterally, similar to the prior.There is mild paranasal sinus disease. The imaged mastoid air cells appear grossly clear. Normal flow voids are demonstrated in the carotidarteries and basilar artery. The calvarium appears normal. Cervical spine: The alignment is normal. Vertebral bodies are normal in height without evidence of compression fractures. Decreased T1 and T2 marrow signal ofthe cervical and visualized upper thoracic spine is a nonspecific findingbut can be seen in the setting of anemia or bone marrow infiltration.Clinical correlation is recommended. The craniocervical junction appears normal. Redemonstration of extensive, patchy foci of hyperintensity are noted in the cervical and visualized upper thoracic cord on the T2, IR and axial T2-weighted images, compatible with the history of multiple sclerosis.No enhancing lesions are identified to suggest active demyelination. There is mild disc height loss at multiple levels. Diffuse disc bulge at the level of C5-C6 resulting in mild to moderate spinal canal stenosis. Mild disc bulge also noted at the level of C4-C5 and to a lesser extent C3-C4. No high-grade central canal stenosis is seen. There are varying degrees of mild facet osteoarthritis. There are varying degrees of mild uncovertebral joint osteoarthritis with the same degree of neuralforaminal stenosis at these levels, worse at C5-C6, left more than right. Comparedto the prior MRI from 06/24/2020, there has been interval increased size ofthe previously seen enhancing lesion in the subcutaneous soft tissues of the lower neck/upper back and development of additional adjacent smaller enhancing lesion. The pre-existing lesion now measures approximately 4.2x 2.8 cm in the widest dimensions when measured on the sagittal image, (series 44, image 9), with ill-defined, infiltrative borders in the adjacent subcutaneous fat. There is induration and enhancement of the overlaying skin. Previously the lesion was defined and measured approximately 1.7 x 1.3 cm, (series 11, image 14). Additionally, therehas been interval development of a smaller lesion inferior to the above-mentioned lesion that measures approximately 1.5 x 1.7 cm, (series 44, image 9), again with ill-defined infiltrative borders are identified along the deeper aspect. Findings are nonspecific however concerning for possible underlying neoplasm or infection. Clinical correlation is recommended. Normal flow voids are identified in the vertebral arteries. Thoracic spine: Noted artifacts on the postcontrast image. The alignment is maintained. Vertebral bodies are normal in heightwithout evidence of compression fractures. Decreased T1 and T2 marrow signal rita nonspecific finding but can be seen in the setting of anemia or bonemarrow infiltration. Clinical correlation is recommended. Extensive patchy fociof hyperintensity are noted in the thoracic cord on the T2, IR and axial T2-weighted images compatible with the history of multiple sclerosis. No abnormal enhancement is identified. The intervertebral discs appear normal. No central canal mild stenosisis seen. There is mild facet osteoarthritis at multiple levels. Nohigh-grade neural foraminal stenosis is seen. No additional soft tissue abnormalityis identified. IMPRESSION: MRI brain: 1.Multiple intracranial white matter lesions compatible with multiple sclerosis. No new T2 lesions and no new enhancing lesions. Mildparenchymal volume loss. MRI cervical and thoracic spine: 1.Scattered intramedullary lesions compatible with the clinical historyof multiple sclerosis. No new T2 intramedullary lesions and no newenhancing intramedullary lesions. 2.Other Significant Cervical Spine Findings: Compared to the prior MRI from 06/24/2020, there has been interval increased size of the previously seen enhancing lesion in the subcutaneous soft tissues of the lower neck/upper back and development of additional adjacent smaller enhancing lesion. The pre-existing lesion now measures approximately 4.2 x 2.8 cmin the widest dimensions when measured on the sagittal image, (series 44, image 9), with ill-defined, infiltrative borders in the adjacent subcutaneous fat. There is induration and enhancement of the overlaying skin. Previously the lesion was defined and measured approximately 1.7 x 1.3 cm, (series 11, image 14). Additionally, there has been interval development of a smaller lesion inferior to the above-mentioned lesionthat measures approximately 1.5 x 1.7 cm, (series 44, image 9), again with ill-defined infiltrative borders are identified along the deeper aspect. Findings are nonspecific however concerning for possible underlying neoplasm or infection. Clinical correlation is recommended. COMMUNICATION: Communicated with Dr. Jun Danielle via [employer] secure chat on at 3:40 PM > Interpreting Provider: Radha Reeves MD on 09/30/2023 3:46 PM Patricia Michelle MD MR ORDERABLES * MRI CERVICAL SPINE WWO CONT (09/23/2023 5:36 PM CDT) Only the most recent of3 resultswithin the time period is included. Anatomical Region Laterality Modality Spine Magnetic Resonan ce 09/27/2023 11:1 1 PM CDT Impressions 09/30/2023 3:46 PM CDT IMPRESSION: MRI brain: 1.Multiple intracranial white matter lesions compatible with multiple sclerosis. No new T2 lesions and no new enhancing lesions. Mild parenchymal volume loss. MRI cervical and thoracic spine: 1.Scattered intramedullary lesions compatible with the clinical history of multiple sclerosis. No new T2 intramedullary lesions and no new enhancing intramedullary lesions. 2.Other Significant Cervical Spine Findings: Compared to the prior MRI from 06/24/2020, there has been interval increased size of the previously seen enhancing lesion in the subcutaneous soft tissues of the lower neck/upper back and development of additional adjacent smaller enhancing lesion. The pre-existing lesion now measures approximately 4.2 x 2.8 cm in the widest dimensions when measured on the sagittal image, (series 44, image 9), with ill-defined, infiltrative borders in the adjacent subcutaneous fat. There is induration and enhancement of the overlaying skin. Previously the lesion was defined and measured approximately 1.7 x 1.3 cm, (series 11, image 14). Additionally, there has been interval development of a smaller lesion inferior to the above-mentioned lesion that measures approximately 1.5 x 1.7 cm, (series 44, image 9), again with ill-defined infiltrative borders are identified along the deeper aspect. Findings are nonspecific however concerning for possible underlying neoplasm or infection. Clinical correlation is recommended. COMMUNICATION: Communicated with Dr. Jun Danielle via [employer] secure chat on at 3:40 PM > Interpreting Provider: Radha Reeves MD on 09/30/2023 3:46 PM Narrative 09/30/2023 3:46 PM CDT PROCEDURE: MRI BRAIN WWO CONTRAST, MRI CERVICAL SPINE WWO CONT, MRI THORACIC SPINE WWO CONT, DATE/TIME OF EXAM: 09/23/2023 5:36 PM, LOCATION [facility] INDICATION: G35: MS (multiple sclerosis) (HCC) ADDITIONAL CLINICAL INFORMATION: Ordering Provider Reason For Exam: Multiple sclerosis. Technologist Note: None. Additional: None. CONTRAST: GADOBUTROL 1 MMOL/ML IV [facility]SM SO:10 mL EXAMINATION: 1.Magnetic resonance imaging (MRI) of the brain without and with contrast 2.MRI of the cervical, thoracic, and lumbar spine without and with contrast HISTORY: G35: MS (multiple sclerosis) (HCC) TECHNIQUE: MRI of the brain, cervical, thoracic, and lumbar spine was performed prior to and following the uneventful administration of 10 mL intravenous Gadavist contrast according to a demyelination protocol. COMPARISON: MRI of the brain from 10/23/2021. FINDINGS: Brain: No evidence of acute or chronic hemorrhage is identified. No evidence of acute cerebral infarction is seen. There is mild cerebral volume loss with associated ex vacuo ventricular dilatation. No mass effect or midline shift is seen. There are multiple foci of hyperintensity on spin density, T2 and FLAIR within the white matter, compatible with the clinical diagnosis of multiple sclerosis. Lesions are seen in the periventricular white matter, in the corpus callosum, and along the ventral margin of the pamela and midbrain, grossly unchanged compared to prior. Several lesions demonstrate T1 hypointensity, compatible with MS black holes. No enhancing lesions are identified to suggest active demyelination. The sella appears normal. The posterior fossa and brainstem appear otherwise grossly stable. The visualized portions of the orbits appear grossly unremarkable. Limited evaluation of the optic nerves. This could be subtle increased FLAIR signal of the prechiasmatic optic nerves bilaterally, similar to the prior. There is mild paranasal sinus disease. The imaged mastoid air cells appear grossly clear. Normal flow voids are demonstrated in the carotid arteries and basilar artery. The calvarium appears normal. Cervical spine: The alignment is normal. Vertebral bodies are normal in height without evidence of compression fractures. Decreased T1 and T2 marrow signal of the cervical and visualized upper thoracic spine is a nonspecific finding but can be seen in the setting of anemia or bone marrow infiltration. Clinical correlation is recommended. The craniocervical junction appears normal. Redemonstration of extensive, patchy foci of hyperintensity are noted in the cervical and visualized upper thoracic cord on the T2, IR and axial T2-weighted images, compatible with the history of multiple sclerosis. No enhancing lesions are identified to suggest active demyelination. There is mild disc height loss at multiple levels. Diffuse disc bulge at the level of C5-C6 resulting in mild to moderate spinal canal stenosis. Mild disc bulge also noted at the level of C4-C5 and to a lesser extent C3-C4. No high-grade central canal stenosis is seen. There are varying degrees of mild facet osteoarthritis. There are varying degrees of mild uncovertebral joint osteoarthritis with the same degree of neural foraminal stenosis at these levels, worse at C5-C6, left more than right. Compared to the prior MRI from 06/24/2020, there has been interval increased size of the previously seen enhancing lesion in the subcutaneous soft tissues of the lower neck/upper back and development of additional adjacent smaller enhancing lesion. The pre-existing lesion now measures approximately 4.2 x 2.8 cm in the widest dimensions when measured on the sagittal image, (series 44, image 9), with ill-defined, infiltrative borders in the adjacent subcutaneous fat. There is induration and enhancement of the overlaying skin. Previously the lesion was defined and measured approximately 1.7 x 1.3 cm, (series 11, image 14). Additionally, there has been interval development of a smaller lesion inferior to the above-mentioned lesion that measures approximately 1.5 x 1.7 cm, (series 44, image 9), again with ill-defined infiltrative borders are identified along the deeper aspect. Findings are nonspecific however concerning for possible underlying neoplasm or infection. Clinical correlation is recommended. Normal flow voids are identified in the vertebral arteries. Thoracic spine: Noted artifacts on the postcontrast image. The alignment is maintained. Vertebral bodies are normal in height without evidence of compression fractures. Decreased T1 and T2 marrow signal is a nonspecific finding but can be seen in the setting of anemia or bone marrow infiltration. Clinical correlation is recommended. Extensive patchy foci of hyperintensity are noted in the thoracic cord on the T2, IR and axial T2-weighted images compatible with the history of multiple sclerosis. No abnormal enhancement is identified. The intervertebral discs appear normal. No central canal mild stenosis is seen. There is mild facet osteoarthritis at multiple levels. No high-grade neural foraminal stenosis is seen. No additional soft tissue abnormality is identified. Procedure Note Radha Reeves MD - 09/30/2023 PROCEDURE: MRI BRAIN WWO CONTRAST, MRI CERVICAL SPINE WWO CONT, MRI THORACIC SPINE WWO CONT, DATE/TIME OF EXAM: 09/23/2023 5:36 PM, [facility] INDICATION: G35: MS (multiple sclerosis) (HCC) ADDITIONAL CLINICAL INFORMATION: Ordering Provider Reason For Exam: Multiple sclerosis. Technologist Note: None. Additional: None. CONTRAST: GADOBUTROL 1 MMOL/ML IV [facility] SO:10 mL EXAMINATION: 1.Magnetic resonance imaging (MRI) of the brain without and withcontrast 2.MRI of the cervical, thoracic, and lumbar spine without and withcontrast HISTORY: G35: MS (multiple sclerosis) ([facility]) TECHNIQUE: MRI of the brain, cervical, thoracic, and lumbar spine was performed prior to and following the uneventful administration of 10 mL intravenous Gadavist contrast according to a demyelination protocol. COMPARISON: MRI of the brain from 10/23/2021. FINDINGS: Brain: No evidence of acute or chronic hemorrhage is identified. No evidence of acute cerebral infarction is seen. There is mild cerebral volume losswith associated ex vacuo ventricular dilatation. No mass effect or midlineshift is seen. There are multiple foci of hyperintensity on spin density, T2and FLAIR within the white matter, compatible with the clinical diagnosis of multiple sclerosis. Lesions are seen in the periventricular whitematter, in the corpus callosum, and along the ventral margin of the pamela and midbrain, grossly unchanged compared to prior. Several lesionsdemonstrate T1 hypointensity, compatible with MS black holes. No enhancing lesionsare identified to suggest active demyelination. The sella appears normal.The posterior fossa and brainstem appear otherwise grossly stable. The visualized portions of the orbits appear grossly unremarkable.Limited evaluation of the optic nerves. This could be subtle increased FLAIRsignal of the prechiasmatic optic nerves bilaterally, similar to the prior.There is mild paranasal sinus disease. The imaged mastoid air cells appear grossly clear. Normal flow voids are demonstrated in the carotidarteries and basilar artery. The calvarium appears normal. Cervical spine: The alignment is normal. Vertebral bodies are normal in height without evidence of compression fractures. Decreased T1 and T2 marrow signal ofthe cervical and visualized upper thoracic spine is a nonspecific findingbut can be seen in the setting of anemia or bone marrow infiltration.Clinical correlation is recommended. The craniocervical junction appears normal. Redemonstration of extensive, patchy foci of hyperintensity are noted in the cervical and visualized upper thoracic cord on the T2, IR and axial T2-weighted images, compatible with the history of multiple sclerosis.No enhancing lesions are identified to suggest active demyelination. There is mild disc height loss at multiple levels. Diffuse disc bulge at the level of C5-C6 resulting in mild to moderate spinal canal stenosis. Mild disc bulge also noted at the level of C4-C5 and to a lesser extent C3-C4. No high-grade central canal stenosis is seen. There are varying degrees of mild facet osteoarthritis. There are varying degrees of mild uncovertebral joint osteoarthritis with the same degree of neuralforaminal stenosis at these levels, worse at C5-C6, left more than right. Comparedto the prior MRI from 06/24/2020, there has been interval increased size ofthe previously seen enhancing lesion in the subcutaneous soft tissues of the lower neck/upper back and development of additional adjacent smaller enhancing lesion. The pre-existing lesion now measures approximately 4.2x 2.8 cm in the widest dimensions when measured on the sagittal image, (series 44, image 9), with ill-defined, infiltrative borders in the adjacent subcutaneous fat. There is induration and enhancement of the overlaying skin. Previously the lesion was defined and measured approximately 1.7 x 1.3 cm, (series 11, image 14). Additionally, therehas been interval development of a smaller lesion inferior to the above-mentioned lesion that measures approximately 1.5 x 1.7 cm, (series 44, image 9), again with ill-defined infiltrative borders are identified along the deeper aspect. Findings are nonspecific however concerning for possible underlying neoplasm or infection. Clinical correlation is recommended. Normal flow voids are identified in the vertebral arteries. Thoracic spine: Noted artifacts on the postcontrast image. The alignment is maintained. Vertebral bodies are normal in heightwithout evidence of compression fractures. Decreased T1 and T2 marrow signal rita nonspecific finding but can be seen in the setting of anemia or bonemarrow infiltration. Clinical correlation is recommended. Extensive patchy fociof hyperintensity are noted in the thoracic cord on the T2, IR and axial T2-weighted images compatible with the history of multiple sclerosis. No abnormal enhancement is identified. The intervertebral discs appear normal. No central canal mild stenosisis seen. There is mild facet osteoarthritis at multiple levels. Nohigh-grade neural foraminal stenosis is seen. No additional soft tissue abnormalityis identified. IMPRESSION: MRI brain: 1.Multiple intracranial white matter lesions compatible with multiple sclerosis. No new T2 lesions and no new enhancing lesions. Mildparenchymal volume loss. MRI cervical and thoracic spine: 1.Scattered intramedullary lesions compatible with the clinical historyof multiple sclerosis. No new T2 intramedullary lesions and no newenhancing intramedullary lesions. 2.Other Significant Cervical Spine Findings: Compared to the prior MRI from 06/24/2020, there has been interval increased size of the previously seen enhancing lesion in the subcutaneous soft tissues of the lower neck/upper back and development of additional adjacent smaller enhancing lesion. The pre-existing lesion now measures approximately 4.2 x 2.8 cmin the widest dimensions when measured on the sagittal image, (series 44, image 9), with ill-defined, infiltrative borders in the adjacent subcutaneous fat. There is induration and enhancement of the overlaying skin. Previously the lesion was defined and measured approximately 1.7 x 1.3 cm, (series 11, image 14). Additionally, there has been interval development of a smaller lesion inferior to the above-mentioned lesionthat measures approximately 1.5 x 1.7 cm, (series 44, image 9), again with ill-defined infiltrative borders are identified along the deeper aspect. Findings are nonspecific however concerning for possible underlying neoplasm or infection. Clinical correlation is recommended. COMMUNICATION: Communicated with Dr. Jun Danielle via [employer] secure chat on at 3:40 PM > Interpreting Provider: Radha Reeves MD on 09/30/2023 3:46 PM Patricia Michelle MD MR ORDERABLES * MRI BRAIN WWO CONTRAST (09/23/2023 3:37 PM CDT) Only the most recent of4 resultswithin the time period is included. Anatomical Region Laterality Modality Head Magnetic Resonan ce 09/27/2023 11:1 1 PM CDT Impressions 09/30/2023 3:46 PM CDT IMPRESSION: MRI brain: 1.Multiple intracranial white matter lesions compatible with multiple sclerosis. No new T2 lesions and no new enhancing lesions. Mild parenchymal volume loss. MRI cervical and thoracic spine: 1.Scattered intramedullary lesions compatible with the clinical history of multiple sclerosis. No new T2 intramedullary lesions and no new enhancing intramedullary lesions. 2.Other Significant Cervical Spine Findings: Compared to the prior MRI from 06/24/2020, there has been interval increased size of the previously seen enhancing lesion in the subcutaneous soft tissues of the lower neck/upper back and development of additional adjacent smaller enhancing lesion. The pre-existing lesion now measures approximately 4.2 x 2.8 cm in the widest dimensions when measured on the sagittal image, (series 44, image 9), with ill-defined, infiltrative borders in the adjacent subcutaneous fat. There is induration and enhancement of the overlaying skin. Previously the lesion was defined and measured approximately 1.7 x 1.3 cm, (series 11, image 14). Additionally, there has been interval development of a smaller lesion inferior to the above-mentioned lesion that measures approximately 1.5 x 1.7 cm, (series 44, image 9), again with ill-defined infiltrative borders are identified along the deeper aspect. Findings are nonspecific however concerning for possible underlying neoplasm or infection. Clinical correlation is recommended. COMMUNICATION: Communicated with Dr. Jun Danielle via [employer] secure chat on at 3:40 PM > Interpreting Provider: Radha Reeves MD on 09/30/2023 3:46 PM Narrative 09/30/2023 3:46 PM CDT PROCEDURE: MRI BRAIN WWO CONTRAST, MRI CERVICAL SPINE WWO CONT, MRI THORACIC SPINE WWO CONT, DATE/TIME OF EXAM: 09/23/2023 5:36 PM, LOCATION [facility] INDICATION: G35: MS (multiple sclerosis) (HCC) ADDITIONAL CLINICAL INFORMATION: Ordering Provider Reason For Exam: Multiple sclerosis. Technologist Note: None. Additional: None. CONTRAST: GADOBUTROL 1 MMOL/ML IV [facility] SO:10 mL EXAMINATION: 1.Magnetic resonance imaging (MRI) of the brain without and with contrast 2.MRI of the cervical, thoracic, and lumbar spine without and with contrast HISTORY: G35: MS (multiple sclerosis) (HCC) TECHNIQUE: MRI of the brain, cervical, thoracic, and lumbar spine was performed prior to and following the uneventful administration of 10 mL intravenous Gadavist contrast according to a demyelination protocol. COMPARISON: MRI of the brain from 10/23/2021. FINDINGS: Brain: No evidence of acute or chronic hemorrhage is identified. No evidence of acute cerebral infarction is seen. There is mild cerebral volume loss with associated ex vacuo ventricular dilatation. No mass effect or midline shift is seen. There are multiple foci of hyperintensity on spin density, T2 and FLAIR within the white matter, compatible with the clinical diagnosis of multiple sclerosis. Lesions are seen in the periventricular white matter, in the corpus callosum, and along the ventral margin of the pamela and midbrain, grossly unchanged compared to prior. Several lesions demonstrate T1 hypointensity, compatible with MS black holes. No enhancing lesions are identified to suggest active demyelination. The sella appears normal. The posterior fossa and brainstem appear otherwise grossly stable. The visualized portions of the orbits appear grossly unremarkable. Limited evaluation of the optic nerves. This could be subtle increased FLAIR signal of the prechiasmatic optic nerves bilaterally, similar to the prior. There is mild paranasal sinus disease. The imaged mastoid air cells appear grossly clear. Normal flow voids are demonstrated in the carotid arteries and basilar artery. The calvarium appears normal. Cervical spine: The alignment is normal. Vertebral bodies are normal in height without evidence of compression fractures. Decreased T1 and T2 marrow signal of the cervical and visualized upper thoracic spine is a nonspecific finding but can be seen in the setting of anemia or bone marrow infiltration. Clinical correlation is recommended. The craniocervical junction appears normal. Redemonstration of extensive, patchy foci of hyperintensity are noted in the cervical and visualized upper thoracic cord on the T2, IR and axial T2-weighted images, compatible with the history of multiple sclerosis. No enhancing lesions are identified to suggest active demyelination. There is mild disc height loss at multiple levels. Diffuse disc bulge at the level of C5-C6 resulting in mild to moderate spinal canal stenosis. Mild disc bulge also noted at the level of C4-C5 and to a lesser extent C3-C4. No high-grade central canal stenosis is seen. There are varying degrees of mild facet osteoarthritis. There are varying degrees of mild uncovertebral joint osteoarthritis with the same degree of neural foraminal stenosis at these levels, worse at C5-C6, left more than right. Compared to the prior MRI from 06/24/2020, there has been interval increased size of the previously seen enhancing lesion in the subcutaneous soft tissues of the lower neck/upper back and development of additional adjacent smaller enhancing lesion. The pre-existing lesion now measures approximately 4.2 x 2.8 cm in the widest dimensions when measured on the sagittal image, (series 44, image 9), with ill-defined, infiltrative borders in the adjacent subcutaneous fat. There is induration and enhancement of the overlaying skin. Previously the lesion was defined and measured approximately 1.7 x 1.3 cm, (series 11, image 14). Additionally, there has been interval development of a smaller lesion inferior to the above-mentioned lesion that measures approximately 1.5 x 1.7 cm, (series 44, image 9), again with ill-defined infiltrative borders are identified along the deeper aspect. Findings are nonspecific however concerning for possible underlying neoplasm or infection. Clinical correlation is recommended. Normal flow voids are identified in the vertebral arteries. Thoracic spine: Noted artifacts on the postcontrast image. The alignment is maintained. Vertebral bodies are normal in height without evidence of compression fractures. Decreased T1 and T2 marrow signal is a nonspecific finding but can be seen in the setting of anemia or bone marrow infiltration. Clinical correlation is recommended. Extensive patchy foci of hyperintensity are noted in the thoracic cord on the T2, IR and axial T2-weighted images compatible with the history of multiple sclerosis. No abnormal enhancement is identified. The intervertebral discs appear normal. No central canal mild stenosis is seen. There is mild facet osteoarthritis at multiple levels. No high-grade neural foraminal stenosis is seen. No additional soft tissue abnormality is identified. Procedure Note Radha Reeves MD - 09/30/2023 PROCEDURE: MRI BRAIN WWO CONTRAST, MRI CERVICAL SPINE WWO CONT, MRI THORACIC SPINE WWO CONT, DATE/TIME OF EXAM: 09/23/2023 5:36 PM, [facility] INDICATION: G35: MS (multiple sclerosis) (HCC) ADDITIONAL CLINICAL INFORMATION: Ordering Provider Reason For Exam: Multiple sclerosis. Technologist Note: None. Additional: None. CONTRAST: GADOBUTROL 1 MMOL/ML IV SSM SO:10 mL EXAMINATION: 1.Magnetic resonance imaging (MRI) of the brain without and withcontrast 2.MRI of the cervical, thoracic, and lumbar spine without and withcontrast HISTORY: G35: MS (multiple sclerosis) (HCC) TECHNIQUE: MRI of the brain, cervical, thoracic, and lumbar spine was performed prior to and following the uneventful administration of 10 mL intravenous Gadavist contrast according to a demyelination protocol. COMPARISON: MRI of the brain from 10/23/2021. FINDINGS: Brain: No evidence of acute or chronic hemorrhage is identified. No evidence of acute cerebral infarction is seen. There is mild cerebral volume losswith associated ex vacuo ventricular dilatation. No mass effect or midlineshift is seen. There are multiple foci of hyperintensity on spin density, T2and FLAIR within the white matter, compatible with the clinical diagnosis of multiple sclerosis. Lesions are seen in the periventricular whitematter, in the corpus callosum, and along the ventral margin of the pamela and midbrain, grossly unchanged compared to prior. Several lesionsdemonstrate T1 hypointensity, compatible with MS black holes. No enhancing lesionsare identified to suggest active demyelination. The sella appears normal.The posterior fossa and brainstem appear otherwise grossly stable. The visualized portions of the orbits appear grossly unremarkable.Limited evaluation of the optic nerves. This could be subtle increased FLAIRsignal of the prechiasmatic optic nerves bilaterally, similar to the prior.There is mild paranasal sinus disease. The imaged mastoid air cells appear grossly clear. Normal flow voids are demonstrated in the carotidarteries and basilar artery. The calvarium appears normal. Cervical spine: The alignment is normal. Vertebral bodies are normal in height without evidence of compression fractures. Decreased T1 and T2 marrow signal ofthe cervical and visualized upper thoracic spine is a nonspecific findingbut can be seen in the setting of anemia or bone marrow infiltration.Clinical correlation is recommended. The craniocervical junction appears normal. Redemonstration of extensive, patchy foci of hyperintensity are noted in the cervical and visualized upper thoracic cord on the T2, IR and axial T2-weighted images, compatible with the history of multiple sclerosis.No enhancing lesions are identified to suggest active demyelination. There is mild disc height loss at multiple levels. Diffuse disc bulge at the level of C5-C6 resulting in mild to moderate spinal canal stenosis. Mild disc bulge also noted at the level of C4-C5 and to a lesser extent C3-C4. No high-grade central canal stenosis is seen. There are varying degrees of mild facet osteoarthritis. There are varying degrees of mild uncovertebral joint osteoarthritis with the same degree of neuralforaminal stenosis at these levels, worse at C5-C6, left more than right. Comparedto the prior MRI from 06/24/2020, there has been interval increased size ofthe previously seen enhancing lesion in the subcutaneous soft tissues of the lower neck/upper back and development of additional adjacent smaller enhancing lesion. The pre-existing lesion now measures approximately 4.2x 2.8 cm in the widest dimensions when measured on the sagittal image, (series 44, image 9), with ill-defined, infiltrative borders in the adjacent subcutaneous fat. There is induration and enhancement of the overlaying skin. Previously the lesion was defined and measured approximately 1.7 x 1.3 cm, (series 11, image 14). Additionally, therehas been interval development of a smaller lesion inferior to the above-mentioned lesion that measures approximately 1.5 x 1.7 cm, (series 44, image 9), again with ill-defined infiltrative borders are identified along the deeper aspect. Findings are nonspecific however concerning for possible underlying neoplasm or infection. Clinical correlation is recommended. Normal flow voids are identified in the vertebral arteries. Thoracic spine: Noted artifacts on the postcontrast image. The alignment is maintained. Vertebral bodies are normal in heightwithout evidence of compression fractures. Decreased T1 and T2 marrow signal rita nonspecific finding but can be seen in the setting of anemia or bonemarrow infiltration. Clinical correlation is recommended. Extensive patchy fociof hyperintensity are noted in the thoracic cord on the T2, IR and axial T2-weighted images compatible with the history of multiple sclerosis. No abnormal enhancement is identified. The intervertebral discs appear normal. No central canal mild stenosisis seen. There is mild facet osteoarthritis at multiple levels. Nohigh-grade neural foraminal stenosis is seen. No additional soft tissue abnormalityis identified. IMPRESSION: MRI brain: 1.Multiple intracranial white matter lesions compatible with multiple sclerosis. No new T2 lesions and no new enhancing lesions. Mildparenchymal volume loss. MRI cervical and thoracic spine: 1.Scattered intramedullary lesions compatible with the clinical historyof multiple sclerosis. No new T2 intramedullary lesions and no newenhancing intramedullary lesions. 2.Other Significant Cervical Spine Findings: Compared to the prior MRI from 06/24/2020, there has been interval increased size of the previously seen enhancing lesion in the subcutaneous soft tissues of the lower neck/upper back and development of additional adjacent smaller enhancing lesion. The pre-existing lesion now measures approximately 4.2 x 2.8 cmin the widest dimensions when measured on the sagittal image, (series 44, image 9), with ill-defined, infiltrative borders in the adjacent subcutaneous fat. There is induration and enhancement of the overlaying skin. Previously the lesion was defined and measured approximately 1.7 x 1.3 cm, (series 11, image 14). Additionally, there has been interval development of a smaller lesion inferior to the above-mentioned lesionthat measures approximately 1.5 x 1.7 cm, (series 44, image 9), again with ill-defined infiltrative borders are identified along the deeper aspect. Findings are nonspecific however concerning for possible underlying neoplasm or infection. Clinical correlation is recommended. COMMUNICATION: Communicated with Dr. Jun Danielle via [employer] secure chat on at 3:40 PM > Interpreting Provider: Radha Reeves MD on 09/30/2023 3:46 PM Patricia Michelle MD MR ORDERABLES * (ABNORMAL) CREATININE - POCT INTERFACED (09/23/2023 2:30 PM CDT) Only the most recent of2 resultswithin the time period is included. Creatinine POCT 1.21 0.30 - 1.30 mg/dL 09/23/2023 2:32 PM CDT [facility] eGFR 76(L) >=90 mL/min/1.7 3 m2 09/23/2023 2:32 PM CDT [facility] Blood BLOOD SPECIMEN / Unknown 09/23/2023 2:30 PM CDT 09/23/2023 2:32 PM CDT Patricia Michelle MD LAB - POINT OF CARE ORDERABLES Performing Organization Address City/[facility]/ZIP Co de Phone Number [address] [address], [place] [phone] * (ABNORMAL) IGM BLOOD (05/05/2022 3:47 PM DELIVERY MAN) Only the most recent of2 resultswithin the time period is included. IgM 25(L) 37 - 286 mg/dL 05/05/2022 5:06 PM DELIVERY MAN [facility] Blood BLOOD SPECIMEN / Unknown Lab Venipuncture / Unknown 05/05/2022 3:47 PM DELIVERY MAN 05/05/2022 4:11 PM DELIVERY MAN Arsh Wang MD LAB - CHEMISTRY ORDERABLES [address] [address], [place] [phone] * IGG BLOOD (05/05/2022 3:47 PM DELIVERY MAN) Only the most recent of2 resultswithin the time period is included. IgG 1,219 767 - 1,590 mg/dL 05/05/2022 5:06 PM DELIVERY MAN [facility] Blood BLOOD SPECIMEN / Unknown Lab Venipuncture / Unknown 05/05/2022 3:47 PM DELIVERY MAN 05/05/2022 4:11 PM DELIVERY MAN Arsh Wang MD LAB - CHEMISTRY ORDERABLES [facility] [address] [place] [address], [place] [phone] * (ABNORMAL) IGA BLOOD (05/05/2022 3:47 PM DELIVERY MAN) Only the most recent of2 resultswithin the time period is included. IgA 416(H) 61 - 356 mg/dL 05/05/2022 5:06 PM DELIVERY MAN [facility] Blood BLOOD SPECIMEN / Unknown Lab Venipuncture / Unknown 05/05/2022 3:47 PM DELIVERY MAN 05/05/2022 4:11 PM DELIVERY MAN Arsh Wang MD LAB - CHEMISTRY ORDERABLES Performing Organization Address City/[facility]/ZIP Co de Phone Number [address] [address], [place] [phone] * VITAMIN D 25-HYDROXY (10/03/2021 10:01 AM CDT) Only the most recent of2 resultswithin the time period is included. Vitamin D, 25 Hydroxy 32.0 30.0 - 80.0 ng/mL 10/03/2021 11:21 AM CDT [facility] Comment: The recommendations for 25-Hydroxy Vitamin D clinical decision points are as follows: Deficient: <20.0 ng/mL Insufficient: 20.0 - 29.9 ng/mL Sufficient: > or =30.0 ng/mL If the 25-Hydroxy Vitamin D results are inconsitent with clinical evidence, it is recommended that follow-up testing using a method such as LC/MS/MS be performed to confirm the result. Reference: The Endocrine Society Clinical Practice Guidelines. 2011 Blood BLOOD SPECIMEN / Unknown Lab Venipuncture / Unknown 10/03/2021 10:01 AM CDT 10/03/2021 10:26 AM CDT Arsh Wang MD LAB - CHEMISTRY ORDERABLES Performing Organization Address City/[facility]/ZIP Co de Phone Number [address] [address], [place] [phone] * (ABNORMAL) IMMUNOGLOBULINS IGG/IGM/IGA PANEL (03/30/2021 2:22 PM DELIVERY MAN) IgG 1,205 767-1,590 mg/dL 03/30/2021 3:52 PM DELIVERY MAN [facility] IgM 27(L) 37 - 286 mg/dL 03/30/2021 3:52 PM DELIVERY MAN [facility] IgA 430(H) 61 - 356 mg/dL 03/30/2021 3:52 PM DELIVERY MAN [facility] Blood BLOOD SPECIMEN / Unknown Lab Venipuncture / Unknown 03/30/2021 2:22 PM DELIVERY MAN 03/30/2021 2:51 PM DELIVERY MAN Arsh Wang MD LAB - CHEMISTRY ORDERABLES Performing Organization Address [facility] Co de Phone Number [address] [address], [place] [phone] * (ABNORMAL) CREATININE BLOOD - POCT (IP) [facility] (02/15/2019 12:21 PM DELIVERY MAN) Creatinine POCT 1.41(A) 0.3 - 1.3 mg/dL [facility] eGFR POCT 73 60 ml/min [facility] Blood BLOOD SPECIMEN / Unknown 02/15/2019 12:21 PM DELIVERY MAN Arsh Wang MD LAB - POINT OF CARE ORDERABLES [facility] [address] [phone] * QUANTIFERON-TB GOLD PLUS 4-TUBE (01/24/2019 5:23 PM DELIVERY MAN) [facility] QuantiFERON Criteria Comment 01/28/2019 6:07 PM DELIVERY MAN [facility] ([facility]) Comment: The QuantiFERON-TB Gold Plus result is determined by subtracting the Nil value from either TB antigen (Ag) tube. The mitogen tube serves as a control for the test. QuantiFERON TB1 Ag Value 0.05 IU/mL 01/28/2019 6:07 PM DELIVERY MAN [facility] ([facility]) QuantiFERON TB2 Ag Value 0.08 IU/mL 01/28/2019 6:07 PM DELIVERY MAN [facility] ([facility]) QuantiFERON Nil Value 0.08 IU/mL 01/28/2019 6:07 PM DELIVERY MAN [facility] ([facility]) QuantiFERON Mitogen Value >10.00 IU/mL 01/28/2019 6:07 PM DELIVERY MAN [facility] ([facility]) QuantiFERON-TB Gold Plus Negative Negative 01/28/2019 6:07 PM DELIVERY MAN [facility] ([facility]) Comment: The specimen received for QuantiFERON testing was incubated by the ordering institution. Specific procedures outlined in our Directory of Services and in the package insert for the QuantiFERON Gold (In Tube) test must be followed to enable for proper stimulation of cells for the production of interferon gamma. Blood BLOOD SPECIMEN / Unknown Lab Venipuncture / Unknown 01/24/2019 5:23 PM DELIVERY MAN 01/24/2019 5:42 PM DELIVERY MAN Narrative [facility] ([facility]) - 01/28/2019 6:07 PM DELIVERY MAN Performed at: - [facility] [address] [place], [place] [id number] Clinical Nurse Educator: Dave Alvarez PhD, Phone: [phone] Arsh Wang MD LAB - CHEMISTRY ORDERABLES [facility] [address] [place] [address], [facility] * LAB MISC TEST (01/24/2019 5:23 PM DELIVERY MAN) Only the most recent of2 resultswithin the time period is included. Test Name STRATIFY JCV AB RFLX TO INHIBITION ASSAY 02/17/2019 7:53 AM DELIVERY MAN [employer] Test Result See Scanned Report 02/17/2019 7:53 AM DELIVERY MAN [facility] [employer] Blood BLOOD SPECIMEN / Unknown Lab Venipuncture / Unknown 01/24/2019 5:23 PM DELIVERY MAN 01/24/2019 5:34 PM DELIVERY MAN Arsh Wang MD LAB SEND OUT [facility] [address] [place] [address] * HEPATITIS B SURFACE ANTIBODY (01/24/2019 5:23 PM DELIVERY MAN) Only the most recent of2 resultswithin the time period is included. Pathologist [facility] Hepatitis B Virus Surface Antibody Non-react ame Non-react ame 01/24/2019 6:14 PM DELIVERY MAN [facility] Comment: < 8 mIU/mL Hepatitis B surface Antibody (HBsAb). Nonreactive for HBsAb - individual is considered not immune to Hepatitis B Virus infection. Hepatitis B Surface Antibody Quantitative 0.3 <8.0 mIU/mL 01/24/2019 6:14 PM DELIVERY MAN [facility] Comment: Hepatitis B Surface Antibody Numeric Result Interpretation: Nonreactive: <8.0 mIU/mL Indeterminate: 8.0 - 12.0 mIU/mL Reactive: >12.0 mIU/mL Blood BLOOD SPECIMEN / Unknown Lab Venipuncture / Unknown 01/24/2019 5:23 PM DELIVERY MAN 01/24/2019 5:34 PM DELIVERY MAN Arsh Wang MD LAB - CHEMISTRY ORDERABLES [address] [phone] * HEPATITIS B CORE ANTIBODY (01/24/2019 5:23 PM DELIVERY MAN) Pathologist [facility] HBc Antibody Total Non-reacti ve Non-reacti ve 01/24/2019 6:15 PM DELIVERY MAN [facility] Blood BLOOD SPECIMEN / Unknown Lab Venipuncture / Unknown 01/24/2019 5:23 PM DELIVERY MAN 01/24/2019 5:34 PM DELIVERY MAN Arsh Wang MD LAB - CHEMISTRY ORDERABLES Performing Organization Address City/[facility]/ZIP Co de Phone Number [address] [phone] * HEPATITIS B SURFACE ANTIGEN W RFLX CONFIRMATION (01/24/2019 5:23 PM DELIVERY MAN) Hepatitis B Virus Surface Antigen Non-reacti ve Non-reacti ve 01/24/2019 6:17 PM DELIVERY MAN [facility] Blood BLOOD SPECIMEN / Unknown Lab Venipuncture / Unknown 01/24/2019 5:23 PM DELIVERY MAN 01/24/2019 5:34 PM DELIVERY MAN Arsh Wang MD LAB - CHEMISTRY ORDERABLES Performing Organization Address [facility] Co de Phone Number [address] [phone] * HEPATITIS C ANTIBODY (01/24/2019 5:23 PM DELIVERY MAN) Hepatitis C Antibody Non-react ame Non-reac tive 01/24/2019 6:14 PM DELIVERY MAN [facility] Comment: Hepatitis C Antibody screen indicates no serologic evidence of past or current infection with Hepatitis C Virus. Patients with unexplained liver disease who are immunocompromised or suspected of having acute Hepatitis C infection may benefit from Nucleic Acid Test (ROLAND) for Hepatitis C Viral RNA to confirm Hepatitis C status. Blood BLOOD SPECIMEN / Unknown Lab Venipuncture / Unknown 01/24/2019 5:23 PM DELIVERY MAN 01/24/2019 5:34 PM DELIVERY MAN Arsh Wang MD LAB - CHEMISTRY ORDERABLES Performing Organization Address City/[facility]/ZIP Co de Phone Number [place] [id number], [place] [phone] * URINALYSIS AUTO - POINT OF CARE (AMB) [facility] (01/17/2019 4:06 PM CDT) Pathologist [facility] Glucose UA - Bilirubin UA POCT - Ketones UA POCT - Specific [place] UA 1.015 Blood Urine POCT - pH UA 6.0 Protein UA - Urobilinogen UA +- Nitrite UA - WBC UA - Urine URINE / Unknown 01/17/2019 4 :06 PM CDT Cathryn Trevino NIPPING MACHINE OPERATOR-AGRICULTURAL EQUIPMENT TEST ENGINEER LAB - POINT O F CARE ORDERABLES * MA MSR PVR U&/BLADD CAPCTY US NON (01/17/2019 4:05 PM CDT) Narrative Apryl Espino - 01/17/2019 4:05 PM CDT Apryl Espino 01/17/2019 4:05 PM Bladder scan completed post patient void with 376ml present in bladder Cathryn Trevino NIPPING MACHINE OPERATOR-AGRICULTURAL EQUIPMENT TEST ENGINEER PROCEDURE/MIN OR SURGICAL ORDERABLES * PROC BLADDER SCAN (12/03/2018 1:14 PM CDT) 12/03/2018 1:14 PM CDT Narrative Sergei John - 12/03/2018 1:14 PM CDT KES=[id number] Cathryn Trevino NIPPING MACHINE OPERATOR-AGRICULTURAL EQUIPMENT TEST ENGINEER PROCEDURE/MIN OR SURGICAL ORDERABLES * CARDIAC EKG ORDER (06/06/2018 9:29 AM CDT) Only the most recent of3 resultswithin the time period is included. Narrative 06/06/2018 9:29 AM CDT Ordered by an unspecified provider. Scanned Document CARDIAC SERVICES ORD ERABLES * (ABNORMAL) GLUCOSE - POINT OF CARE (05/09/2018 12:40 PM DELIVERY MAN) Only the most recent of23 resultswithin the time period is included. Glucose WB/POC 194(H) 70 - 115 mg/dL 05/09/2018 12:45 PM DELIVERY MAN [facility] Specimen Type Arterial/C apillary 05/09/2018 12:45 PM DELIVERY MAN [facility] Blood BLOOD SPECIMEN / Unknown 05/09/2018 12:40 PM DELIVERY MAN 05/09/2018 12:45 PM DELIVERY MAN Narrative [facility] - 05/09/2018 12:45 PM DELIVERY MAN Shafting Worker: STAR VALADEZ Klaudia Song MD LAB - POINT OF CARE ORDERABLES [place] [id number] [address] [phone] * TATIANNA VIRUS PCR QUALITATIVE (05/08/2018 3:50 AM DELIVERY MAN) Source TATIANNA Virus Blood 6:03 PM DELIVERY MAN [facility] ([facility]) TATIANNA Virus PCR Not Detected 05/11/2018 6:03 PM DELIVERY MAN [facility] ([facility]) Comment: NOT DETECTED - A negative result does not rule out the presence of PCR inhibitors in the patient specimen or assay specific nucleic acid in concentrations below the level of detection by the assay. INTERPRETIVE INFORMATION: TATIANNA Virus by PCR Test developed and characteristics determined by [employer]. See Compliance Statement B: [employer] Performed by [employer], [address] [place] [address] [email or web address] Juan A Acharya MD, Lab. Director Microbiology BLOOD SPECIMEN / Unknown 05/08/2018 3:50 AM DELIVERY MAN 05/08/2018 4:44 AM DELIVERY MAN Jones Romero MD LAB - MICROBIOLOGY O RDERABLES [facility]) [address] * PT-INR [facility] (05/08/2018 3:44 AM DELIVERY MAN) Only the most recent of4 resultswithin the time period is included. PT 13.1 12.1 - 14.8 Seconds 05/08/2018 5:00 AM DELIVERY MAN [facility] INR 1.0 See Comment 05/08/2018 5:00 AM DELIVERY MAN [facility] Comment: The suggested therapeutic range for standard coumadin (warfarin) therapy is an INR of 2.0-3.0. For high-risk patients (Mechanical Mitral Valve Prosthesis, etc.), the suggested prophylactic therapeutic range is an INR of 2.5-3.5. Blood BLOOD SPECIMEN / Unknown 05/08/2018 3:44 AM DELIVERY MAN 05/08/2018 4:44 AM DELIVERY MAN Magdiel Thompson MD LAB - COAGULATION OR DERABLES Performing Organization Address City/State/[facility] Co de Phone Number [address] [phone] * (ABNORMAL) DIFFERENTIAL MANUAL (05/08/2018 3:44 AM DELIVERY MAN) WBC (corrected for NRBC) 8.2 10 3/uL 05/08/2018 5:37 AM [facility] Total Cell Count 100 05/08/19 19 5:37 AM [facility] Neutrophils Absolute Manual 2.95 1.60 - 7.00 10 3/uL 05/08/2018 5:37 AM [facility] Comment:(BANDS+SEGS) x WBC = NEUT # (ANC) Lymphocyte Absolute Manual 4.43(H) 0.80 - 2.90 10 3/uL 05/08/2018 5:37 AM [facility] Monocytes Absolute Manual 0.57 0.14 - 0.66 10 3/uL 05/08/2018 5:37 AM [facility] Eosinophils Absolute Manual 0.25(H) 0.00 - 0.22 10 3/uL 05/08/2018 5:37 AM [facility] Neutrophil % Manual 36 30 - 60 % 05/08/2018 5:37 AM [facility] Lymphocyte % Manual 54(H) 20 - 45 % 05/08/2018 5:37 AM [facility] Monocytes % Manual 7 2 - 10 % 05/08/2018 5:37 AM [facility] Eosinophils % Manual 3 1 - 6 % 05/08/2018 5:37 AM [facility] Platelet Estimate Adequate Adequate 05/08/2018 5:37 AM [facility] [place] Anisocytosis 1+(A) None 05/08/2018 5:37 AM [facility] Tear Drop Cells 1+(A) None 9 5:37 AM DELIVERY MAN [facility] Blood BLOOD SPECIMEN / Unknown 05/08/2018 3:44 AM DELIVERY MAN 05/08/2018 4:44 AM DELIVERY MAN Magdiel Thompson MD LAB - [place] [address], [facility] [phone] * SYPHILIS ANTIBODY CASCADING REFLEX (05/07/2018 4:15 AM DELIVERY MAN) Treponema pallidum Antibody Non-react ame Non-react ame 05/07/2018 8:37 AM DELIVERY MAN [facility] Comment: No Laboratory evidence of syphilis infection. Note: Circulating antibodies may be low or undetectable in early infection. If recent exposure is suspected, re-draw sample in 2-4 weeks and repeat testing. Blood BLOOD SPECIMEN / Unknown Lab Venipuncture / Unknown 05/07/2018 4:15 AM DELIVERY MAN 05/07/2018 7:52 AM DELIVERY MAN Poly Grijalva MD LAB - SEROLOGY ORDER MADIHA Performing Organization Address City/[facility]/[place] [address], [facility] [phone] * TOMI BLOOD SCREEN W/REFLEX TITER (05/07/2018 4:15 AM DELIVERY MAN) TOMI Negative 05/08/2018 4:21 PM DELIVERY MAN [facility] ([facility]) Comment: Negative <1:80 Borderline 1:80 Positive >1:80 Blood BLOOD SPECIMEN / Unknown Lab Venipuncture / Unknown 05/07/2018 4:15 AM DELIVERY MAN 05/07/2018 4:35 AM DELIVERY MAN Narrative [facility] ([facility]) - 05/08/2018 4:21 PM DELIVERY MAN Performed at: 01 - [facility] [address] [id number] Clinical Nurse Educator: Dave Alvarez PhD, Phone: [phone] Poly Grijalva MD LAB - CHEMISTRY ORDMyron SCHROEDER Performing Organization Address [facility] de Phone Number [facility] ([facility]) [address] [place] [address] * VITAMIN E (05/07/2018 4:15 AM DELIVERY MAN) [facility] Vitamin E Alpha Tocopherol 9.7 5.9 - 19.4 mg/L 05/10/2018 7:18 AM DELIVERY MAN [facility] ([facility]) Comment: This test was developed and its performance characteristics determined by [facility]. It has not been cleared or approved by the Food and Drug Administration. Vitamin E Gamma Tocopherol 2.4 0.7 - 4.9 mg/L 05/10/2018 7:18 AM DELIVERY MAN [facility] ([facility]) Comment: This test was developed and its performance characteristics determined by [facility]. It has not been cleared or approved by the Food and Drug Administration. Reference intervals for alpha and gamma-tocopherol determined from National Health and Nutrition Examination Survey, 5392-2827. Individuals with alpha-tocopherol levels less than 5.0 mg/L are considered vitamin E deficient. Blood BLOOD SPECIMEN / Unknown Lab Venipuncture / Unknown 05/07/2018 4:15 AM DELIVERY MAN 05/07/2018 4:36 AM DELIVERY MAN Narrative [facility] ([facility]) - 05/10/2018 7:18 AM DELIVERY MAN Performed at: [address] [place] [id number] Clinical Nurse Educator: Kendall Guzman MD, Phone: [phone] Poly Grijalva MD LAB - CHEMISTRY NEHAL SCHROEDER Performing Organization Address [facility] Co de Phone Number [facility] ([facility]) [address] [place] [address] * SS-B (SJOGRENS'S) ANTIBODY (05/07/2018 4:15 AM DELIVERY MAN) [facility] SS-B LA Antibody 5.9 0.0 - 19.9 Units 05/08/2018 10:26 AM DELIVERY MAN [facility] Comment: TONO Antibody Numeric Result Interpretation: <20.0 Units: Negative 20.0 - 39.0 Units: Weakly Positive >39.0 Units: Positive Blood BLOOD SPECIMEN / Unknown Lab Venipuncture / Unknown 05/07/2018 4:15 AM DELIVERY MAN 05/07/2018 4:35 AM DELIVERY MAN Poly Grijalva MD LAB - CHEMISTRY NEHAL SCHROEDER Performing Organization Address [facility]/State/ZIP Co de Phone Number [address] [phone] * SS-A (SJOGREN'S) ANTIBODY (05/07/2018 4:15 AM DELIVERY MAN) Pathologist [facility] SS-A (Ro) Antibody 5.0 0.0 - 19.9 Units 05/08/2018 10:26 AM DELIVERY MAN [facility] Comment: TONO Antibody Numeric Result Interpretation: <20.0 Units: Negative 20.0 - 39.0 Units: Weakly Positive >39.0 Units: Positive Blood BLOOD SPECIMEN / Unknown Lab Venipuncture / Unknown 05/07/2018 4:15 AM DELIVERY MAN 05/07/2018 4:35 AM DELIVERY MAN Poly Grijalva MD LAB - CHEMISTRY NEHAL SCHROEDER Performing Organization Address [facility]/ZIP Co de Phone Number [address] [phone] * (ABNORMAL) ERYTHROCYTE SEDIMENTATION RATE (05/07/2018 4:15 AM DELIVERY MAN) [facility] Erythrocyte Sedimentation Rate Westergren 36(H) 0 - 15 MM/HR 05/07/2018 5:11 AM DELIVERY MAN [facility] Blood BLOOD SPECIMEN / Unknown Lab Venipuncture / Unknown 05/07/2018 4:15 AM DELIVERY MAN 05/07/2018 4:36 AM DELIVERY MAN Poly Grijalva MD LAB - HEMATOLOGY ORD ERATERESA Performing Organization Address City/[facility]/ZIP Co de Phone Number [address] [phone] * (ABNORMAL) HEPATIC FUNCTION PANEL (05/07/2018 4:15 AM DELIVERY MAN) [facility] Protein Total 7.0 6.0 - 8.3 g/dL 019 5:04 AM [facility] Albumin 3.0(L) 3.4 - 5.0 g/dL 05/07/2018 5:04 AM [facility] Bilirubin Total 0.4 0.2 - 1.2 mg/dL 04/19 5:04 AM [facility] Bilirubin Conjugated 0.1 0.0 - 0.5 mg/dL 05/07/2018 5:04 AM [facility] Bilirubin Unconjugated 0.3 Unconjugated Bilirubin is a calculated value: Reference ranges have not been established. mg/dL 05/07/2018 5:04 AM [facility] Alkaline Phosphatase 49 40 - 150 Units/L 05/07/2018 5:04 AM [facility] ALT 24 0 - 55 Units/L 05/07/2018 5:04 AM [facility] AST 14 5 - 34 Units/L 05/07/2018 5:04 AM [facility] Albumin/Globulin Ratio 0.8(L) 1.1 - 2.3 05/07/2018 5:04 AM [facility] Blood BLOOD SPECIMEN / Unknown Lab Venipuncture / Unknown 05/07/2018 4:15 AM DELIVERY MAN 05/07/2018 4:35 AM DELIVERY MAN Poly Grijalva MD LAB - CHEMISTRY ORDMyron SCHROEDER Performing Organization Address City/[facility]/ZIP Co de Phone Number [address] [phone] * VITAMIN B12 (05/07/2018 4:15 AM DELIVERY MAN) Vitamin B12 652 213 - 816 pg/mL 05/07/2018 5:31 AM [facility] Blood BLOOD SPECIMEN / Unknown Lab Venipuncture / Unknown 05/07/2018 4:15 AM DELIVERY MAN 05/07/2018 4:35 AM DELIVERY MAN Poly Grijalva MD LAB - CHEMISTRY ORDMyron SCHROEDER [address] [phone] * TSH (05/07/2018 4:15 AM DELIVERY MAN) Only the most recent of2 resultswithin the time period is included. TSH 1.598 0.350 - 4.940 uIU/mL 05/07/2018 5:31 AM DELIVERY MAN [facility] Blood BLOOD SPECIMEN / Unknown Lab Venipuncture / Unknown 05/07/2018 4:15 AM DELIVERY MAN 05/07/2018 4:35 AM DELIVERY MAN Poly Grijalva MD LAB - CHEMISTRY ORDMyron SCHROEDER Performing Organization Address City/[facility]/ZIP Co de Phone Number [facility] [address] [phone] * LAB MISC TEST (NOT BLOOD) (05/06/2018 11:58 AM DELIVERY MAN) Pathologist [facility] Test Name SEE SCANNED REPORT 05/20/2018 9:24 AM DELIVERY MAN [facility] REF LAB NON INTERF Test Result 05/20/2018 9:24 AM DELIVERY MAN [facility] REF LAB NON INTERF Comment Ref Lab 05/20/2018 9:24 AM DELIVERY MAN [facility] REF LAB NON INTERF Other CEREBROSPINAL FLUID SPECIMEN / Unknown Collection / Unknown 05/06/2018 11:58 AM DELIVERY MAN 05/06/2018 11:58 AM DELIVERY MAN Klaudia Song MD LAB - BODY FLUID ORD ERABLES Performing Organization Address City/[facility]/ZIP Co de Phone Number [facility] REF LAB NON INTERF [address] [place] [address] * EKG 12-LEAD (05/06/2018 9:55 AM DELIVERY MAN) Ventricular Rate 89 BPM [facility] Atrial Rate 89 BPM [facility] P-R Interval 138 ms [facility] QRS Duration ms 80 ms [facility] Q-T Interval ms 336 ms [facility] QTC Calculation (Bezet) 408 ms [facility] MUSE Calculated P [place] 58 degrees [facility] MUSE Calculated R [place] 45 degrees [facility] MUSE Calculated T [place] 11 degrees [facility] Interpretation EKG NORMAL SINUS RHYTHM NORMAL ECG NO PREVIOUS ECGS AVAILABLE Confirmed by EVAN QUIGLEY ([id number]), video editor QUENTIN KONG ([id number]) on 05/14/2018 12:44:51 PM [facility] 05/06/2018 9:55 AM DELIVERY MAN 05/14/2018 12:44 PM DELIVERY MAN Magdiel Thompson MD ECG ORDERABLES [facility] * CYTOLOGY NON-SPORT SHOE SPIKE ASSEMBLER PANEL (STL) (05/05/2018 1:27 PM DELIVERY MAN) Case Report Medical Cytology Report Case: [id number] Authorizing Provider: Jones Romero MD Collected: 05/05/2018 01:27 PM Ordering Location: [address] Received: 05/05/2018 01:45 PM Pathologist: Jose Carlos Lay MD Specimen: CSF Tube 2 05/07/2018 9:06 AM [facility] Specimen Adequacy Adequate cellularity for evaluation. 05/07/2018 9:06 AM [facility] Final Diagnosis Cerebrospinal fluid (A): - No evidence of malignancy 05/07/2018 9:06 AM [facility] Clinical History Multiple sclerosis 05/07/2018 9:06 AM [facility] Gross Description 1 cs/ diff-quik slide from 2 cc clear fluid. 05/07/2018 9:06 AM [facility] Microscopic Description Review of slide reveals lymphocytes, histiocytes, and degenerated cells. NK/HG 05/07/2018 9:06 AM [facility] Disclaimer The performance characteristics of all immunohistochemical and indirect immunofluorescence stains (if any) cited in this report were determined by the Histopathology Laboratory of [facility]. Some of these tests rely on the use of analyte-specific reagents and are subject to specific labeling requirements by the US Food and Drug Administration. Such tests were developed by the Histology Laboratory of [facility] and have not been cleared or approved by the FDA. The FDA has determined that such clearance and approval is not necessary. These tests are used for clinical purposes and should not be regarded as investigational or for research. This laboratory is certified under the Clinical Laboratory Improvement Amendments (CLIA) as qualified to perform high complexity clinical laboratory testing. This case has been personally reviewed and interpreted by the attending (teaching) pathologist. 05/07/2018 9:06 AM [facility] Embedded Images 05/07/2018 9:06 AM [facility] Pathology/Cytolo gy CEREBROSPINAL FLUID SPECIMEN / Unknown Collection / Unknown 05/05/2018 1:27 PM DELIVERY MAN 05/05/2018 1:45 PM DELIVERY MAN Jones Romero MD LAB - PATHOLOGY/CYTO LOGY ORDERABLES Performing Organization Address City/[facility]/ZIP Co de Phone Number [facility] LAB [address] [phone] * DIFFERENTIAL MANUAL FLUID (05/05/2018 1:26 PM DELIVERY MAN) Lymphocytes % Fluid 90 % 05/05/2018 2:48 PM [facility] Monocytes % Fluid 10 % 05/05/2018 2:48 PM [facility] Cerebral spinal fluid CEREBROSPINAL FLUID SPECIMEN / Unknown Collection / Unknown 05/05/2018 1:26 PM DELIVERY MAN 05/05/2018 1:44 PM DELIVERY MAN Jones Romero MD LAB - BODY FLUID ORD ERABLES Performing Organization Address [facility] Co de Phone Number [address] [phone] * GRAM STAIN (LAB ORDERED) (05/05/2018 1:26 PM DELIVERY MAN) Gram Stain Light White blood cells 05/05/2018 4:22 PM [facility] Gram Stain No organisms seen 05/05/2018 4:22 PM [facility] Microbiology CEREBROSPINAL FLUID SPECIMEN / Unknown Collection / Unknown 05/05/2018 1:26 PM DELIVERY MAN 05/05/2018 1:44 PM DELIVERY MAN Jones Romero MD LAB - MICROBIOLOGY O RDERABLES Performing Organization Address City/[facility]/ZIP Co de Phone Number [place], [place] [address] [phone] * CULTURE CSF+GRAM STAIN (05/05/2018 1:26 PM DELIVERY MAN) Culture No growth CONSUELO 05/12/2018 5:30 AM DELIVERY MAN [facility] MICROBIOLOGY Gram Stain No organisms seen 05/12/2018 5:30 AM [facility] MICROBIOLOGY Cerebral spinal fluid CEREBROSPINAL FLUID SPECIMEN / Unknown Collection / Unknown 05/05/2018 1:26 PM DELIVERY MAN 05/05/2018 1:44 PM DELIVERY MAN Jones Romero MD LAB - MICROBIOLOGY O RDERABLES [facility] MICROBIOLOGY [address] [place] [address], [facility] [phone] * (ABNORMAL) MYELIN BASIC PROTEIN CSF (05/05/2018 1:26 PM DELIVERY MAN) Myelin Basic Protein 19.79(H) 0.00 - 5.50 ng/mL 05/08/2018 5:04 PM DELIVERY MAN [facility] [employer] ([facility]) Comment: INTERPRETIVE INFORMATION: Myelin Basic Protein Test developed and characteristics determined by [employer]. See Compliance Statement D: [employer]CS Performed by [employer], [address] [place] [id number] [email or web address], Juan A Acharya MD, Lab. Director Cerebral spinal fluid CEREBROSPINAL FLUID SPECIMEN / Unknown Collection / Unknown 05/05/2018 1:26 PM DELIVERY MAN 05/05/2018 1:48 PM DELIVERY MAN Jones Romero MD LAB - BODY FLUID ORD ERABLES [employer] [facility]) [address] [place] [address], [facility] * CELL COUNT W DIFFERENTIAL CSF (05/05/2018 1:26 PM DELIVERY MAN) Color Fluid Colorless Colorless, Straw 05/05/2018 1:54 PM DELIVERY MAN [facility] Clarity Fluid Clear Clear 05/05/2018 1:54 PM DELIVERY MAN [facility] Volume Fluid 7.0 mL 05/05/2018 1:54 PM [facility] WBC Fluid 7 /uL 05/05/2018 1:54 PM [facility] RBC Fluid 0 /uL 05/05/2018 1:54 PM [facility] Xanthochromia Fluid Negative Negative 05/05/2018 1:54 PM [facility] Differential Manual Differential to follow. 05/05/2018 1:54 PM [facility] Cerebral spinal fluid CEREBROSPINAL FLUID SPECIMEN / Unknown Collection / Unknown 05/05/2018 1:26 PM DELIVERY MAN 05/05/2018 1:44 PM DELIVERY MAN Jones Romero MD LAB - BODY FLUID ORD ERABLES Performing Organization Address [facility]/ZIP Co de Phone Number [address] [phone] * (ABNORMAL) PROTEIN CSF (05/05/2018 1:26 PM DELIVERY MAN) Protein CSF 53(H) 15 - 45 mg/dL 05/05/2018 2:30 PM [facility] Cerebral spinal fluid CEREBROSPINAL FLUID SPECIMEN / Unknown Collection / Unknown 05/05/2018 1:26 PM DELIVERY MAN 05/05/2018 1:46 PM DELIVERY MAN Jones Romero MD LAB - BODY FLUID ORD ERABLES Performing Organization Address City/[facility]/[place] [address], [facility] [phone] * GLUCOSE CSF (05/05/2018 1:26 PM DELIVERY MAN) Glucose CSF 69 40 - 70 mg/dL 05/05/2018 2:30 PM [facility] Cerebral spinal fluid CEREBROSPINAL FLUID SPECIMEN / Unknown Collection / Unknown 05/05/2018 1:26 PM DELIVERY MAN 05/05/2018 1:46 PM DELIVERY MAN Jones Romero MD LAB - BODY FLUID ORD ERABLES Performing Organization Address City/[facility]/[place] [address], [facility] [phone] * (ABNORMAL) URINALYSIS W/MICROSCOPIC NO CULTURE (05/05/2018 7:50 AM [facility]) Color UA Yellow Straw, Yellow, Colorless 05/05/2018 8:10 AM [facility] Clarity UA Clear Clear, Slt Cloudy 05/05/2018 8:10 AM [facility] Specific [place] UA 1.020 1.005 - 1.030 05/05/2018 8:10 AM [facility] pH UA 6.0 5.0 - 8.0 pH 05/05/2018 8:10 AM [facility] Protein UA Negative Negative mg/dL 05/05/2018 8:10 AM [facility] Glucose UA Negative Negative mg/dL 05/05/2018 8:10 AM [facility] Ketone UA Negative Negative mg/dL 05/05/2018 8:10 AM [facility] Bilirubin UA Negative Negative mg/dL 05/05/2018 8:10 AM [facility] Blood UA 1+(A) Negative 05/05/2018 8:10 AM [facility] Nitrite UA Negative Negative 05/05/2018 8:10 AM [facility] Leukocyte Esterase Negative Negative 05/05/2018 8:10 AM [facility] Urobilinogen UA 4.0(A) Negative mg/dL 05/05/2018 8:10 AM [facility] RBC UA 6-10(A) None Seen, 0-2, 3-5 /HPF 05/05/2018 8:10 AM [facility] WBC UA 0-5 None Seen, 0-5 /HPF 05/05/2018 8:10 AM [facility] Squamous Epithelial Cells UA 0-2 None Seen, 0-2 /HPF 05/05/2018 8:10 AM [facility] Mucus UA 1+ None, 1+ /LPF 05/05/2018 8:10 AM [facility] Urine URINE SPECIMEN OBTAINED BY CLEAN CATCH PROCEDURE / Unknown Collection / Unknown 05/05/2018 7:50 AM DELIVERY MAN 05/05/2018 7:56 AM [facility] Klaudia Song MD LAB - URINALYSIS ORD ERABLES [address] [phone] * HEMOGLOBIN A1C (05/05/2018 3:48 AM DELIVERY MAN) Hemoglobin A1c 6.4 % 05/06/2018 10:32 AM [facility] Comment:Hemoglobin variant d etected. Abnormal hemoglobin may not form glycated product at the same rate as hemoglobin A and/or hemoglobin variant may interfere with the accurate measurement of HbA1C. Consider measurement of HbA1C by alternative method. Recommend hemoglobin electrophoresis to evaluate the variant hemoglobin if clinically indicated. Estimated Average Glucose 137 mg/dL 05/06/2018 10:32 AM [facility] Comment: HbA1c Interpretation: Treatment target values recommended by ADA and other clinical organizations should be used to evaluate metabolic control in patients. Treatment Target Values: Normal : < 5.7% Pre-diabetes: 5.7-6.4% Diabetes: Equal to or greater than 6.5% Reference: [place] [employer] Standards of Care in Diabetes -2014 In patients 70 years and older consider HbA1c target range of 7.0-7.5% Reference: Diabetes Mellitus in Older People: Position Statement on behalf of the International Association of Gerontology and Geriatrics (IAGG), the Diabetes Working Democrat for Older People (EDWPOP), and the International Task Force of Experts in Diabetes. Melchor Bingham, et al. J [place] [employer]. 2012 Test results diagnostic of diabetes should be repeated for confirmation. The Sebia Capillary 2 assay for the measurement of HbA1c is a National Glycohemoglobin Standardization Program (NGSP)certified method. Blood BLOOD SPECIMEN / Unknown Lab Venipuncture / Unknown 05/05/2018 3:48 AM DELIVERY MAN 05/05/2018 3:54 AM DELIVERY MAN Magdiel Thompson MD LAB - CHEMISTRY NEHAL Chaudhari Organization Address City/State/[place] [address], [facility] [phone] * PHOSPHORUS BLOOD (05/05/2018 3:48 AM [facility]) Phosphorus 3.8 2.3 - 4.7 mg/dL 05/05/2018 4:12 AM [facility] Blood BLOOD SPECIMEN / Unknown Lab Venipuncture / Unknown 05/05/2018 3:48 AM DELIVERY MAN 05/05/2018 3:54 AM DELIVERY MAN Magdiel Thompson MD LAB - CHEMISTRY NEHAL SCHROEDER [facility] [address] [place] [address] * MAGNESIUM BLOOD (05/05/2018 3:48 AM DELIVERY MAN) Magnesium 1.9 1.6 - 2.6 mg/dL 05/05/2018 4:12 AM DELIVERY MAN [facility] Blood BLOOD SPECIMEN / Unknown Lab Venipuncture / Unknown 05/05/2018 3:48 AM DELIVERY MAN 05/05/2018 3:54 AM DELIVERY MAN Magdiel Thompson MD LAB - CHEMISTRY NEHAL SCHROEDER Performing Organization Address City/[facility]/ZIP Co de Phone Number [address] [phone] Care Teams Grain Picker Relationship Specialty Start Date End Date John Drummond MD [facility] [address] [place] [address] PCP - General 04/16/18
--- OUTSIDE RECORDS SUMMARY | 2024-05-02 10:48 | XMS_ITS | Clinical Summary ---
Author Organization [facility] Address [address] [place] [address] Care Team Providers Care Financial Aids Officer Name Role Phone John Drummond MD Primary Care Provider [phone] Allergies Active Allergy Reactions Criticality Noted Date Comments Shellfish-Derived Products Nausea Only 05/09/19 19 Medications melatonin 3 MG tablet Take 3 mg by mouth nightly at bedtime. Active metFORMIN 500 MG tabletIndicatio ns:Multiple sclerosis ([facility]) Take 1 tablet (500 mg total) by mouth 2 (two) times daily with meals. 60 tablet 05/24/2018 Active vitamin D2, ergocalciferol, 68431 units capsuleIndicati ons:Multiple sclerosis ([facility]) Take 1 capsule (50,000 Units total) by mouth weekly. 4 capsule 05/24/2018 Active BACLOFEN 20 MG tabletIndicatio ns:Spasticity TAKE 1 TABLET BY MOUTH TWICE DAILY 60 tablet 06/24/2018 Active Active Problems Problem Noted Date Diagnosed Date Essential hypertension 05/14/2018 Spasticity 05/14/2018 Multiple sclerosis (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 [employer] Gender Identity Not on file Sexual Orientation Not on file Last Filed Vital Signs Vital Sign Reading Time Taken Comments Blood Pressure 138/82 06/19/2018 4:19 PM CDT Pulse 91 06/19/2018 4:19 PM CDT Temperature 36.9 C (98.4 F) 05/24/2018 9:25 AM INSOLE TAPE STITCHER [employer] Respiratory Rate 18 05/24/2018 9:25 AM INSOLE TAPE STITCHER [employer] Oxygen Saturation 98% 06/19/2018 4:19 PM CDT Inhaled Oxygen Concentration - - Weight 145.6 kg (321 lb) 06/19/2018 4:19 PM CDT Height 190.5 cm (6' 3 ) 05/09/2018 3:00 PM [employer]SOLE TAPE STITCHER [employer] Body Mass Index 40.12 05/09/2018 3:00 PM INSOLE TAPE STITCHER [employer] Plan of Treatment Health Maintenance Due Date Last Done Comments Annual Physical 1983 Hepatitis C 1998 DTaP, Tdap and Td Vaccines ( 1 - Tdap) 1999 Hepatitis B Vaccines (1 of 3 - 19+ 3-dose series) 1999 COVID-19 Vaccine (2023-2 5 season) 2023 Influenza Adult (#1) 2023 HPV Vaccines Aged Out No longer eligi ble based on patient's age to complete this topic Meningococcal B Vaccine Aged Out No l onger eligible based on patient's age to complete this topic Meningococcal Vaccine Aged Out No dalila amy eligible based on patient's age to complete this topic Pneumococcal Vaccine: Pediat rics (0 to 5 Years) and At-Risk Patients (6 to 64 Years) Aged Out No longer eligible b ased on patient's age to complete this topic RSV Immunizations Under 20 Months Aged Out No longer eligible based on patient's age to complete this topic Insurance Advance Directives * Full Code (Latest Code Status on File) Date Activated Date Inactivated Comments 05/15/2018 1:07 AM 05/24/2018 2:12 PM Care Teams Financial Aids Officer Relationship Specialty Start Date End Date John Drummond MD [address] [place] [phone] PCP - General FAMILY PRACTICE 05/11/18
--- OUTSIDE RECORDS SUMMARY | 2024-05-02 10:48 | XMS_ITS | Clinical Summary ---
Author Organization [facility] Address [address] [place] [address] Care Team Providers Care Calciner Operator Helper Name Role Phone John Drummond MD Primary Care Provider [phone] Source Comments [facility],non-owned Affiliates and Associated Physician Practices is amultiple site organization consisting of ambulatory clinics and hospital sitesin [place], [place], [place] and [place]. This disclosure is being madepursuant to the Care Everywhere program and may not contain all information available regarding this patient. Last updated 17.[facility] Allergies Active Allergy Reactions Criticality Noted Date [...] cultur e positive 05/05/2018 Multiple sclerosis 05/01/2018 Encounters Date Type Department Care Team Description 04/29/2024 Telephone [facility] - Neurology [address] [place] [phone] Joellen Albarado MD Medication Prior Auth Request (Dalfampridine) 04/18/2024 8:30 AM INSIDE SALES ACCOUNT EXECUTIVE Office Visit [facility] - Cosmetic Dermatology [address], [facility] [address] [place] [address] Fariha Javed DO Neoplasm of uncertain behavior of skin (Primary Dx) 04/18/2024 Travel 02/20/2024 10:57 AM INSIDE SALES ACCOUNT EXECUTIVE - 02/20/2024 11:59 PM INSIDE SALES ACCOUNT EXECUTIVE Hospital Encounter [facility] [address] [place] [phone] Discharge Disposition: Home or Self Care 02/20/2024 10:00 AM INSIDE SALES ACCOUNT EXECUTIVE Office Visit [facility] - Neurology [address] [place] [phone] Joellen Albarado MD MS (multiple sclerosis) (HCC) (Primary Dx); Mass on back; Spasticity; Neurologic gait dysfunction 02/20/2024 Travel 02/11/2024 Travel from Last 3 Months Family History Medical History Relation Name Comments Multiple Sclerosis Other uncle's son Multiple Sclerosis Paternal Aunt Multiple Sclerosis Paternal Grandfather Cancer - Skin, Melanoma Neg Hx Cancer - Skin, Non Melanoma Neg Hx Relation Name Status Comments Other uncle's son Alive Paternal Aunt Paternal Grandfather Social History Tobacco Use Types Packs/Day Years [...] Comments Blood Pressure 122/86 02/20/2024 9:38 AM INSIDE SALES ACCOUNT EXECUTIVE Pulse 78 02/20/2024 9:38 AM INSIDE SALES ACCOUNT EXECUTIVE Temperature 36.6 C (97.8 F) 12/07/2023 8:00 AM CDT Respiratory Rate 20 12/07/2023 8:00 AM CDT Oxygen Saturation 98% 02/20/2024 9:38 AM INSIDE SALES ACCOUNT EXECUTIVE Inhaled Oxygen Concentration - - Weight 147.4 kg (325 lb) 02/20/2024 9:38 AM INSIDE SALES ACCOUNT EXECUTIVE Height 193 cm (6' 4 ) 08/31/2023 2:10 PM CDT Body Mass Index 39.56 08/31/2023 2:10 PM CDT Plan of Treatment Upcoming Encounters Date Type Department Care Team (Late st Contact Info) Description 05/23/2024 8:50 AM INSIDE SALES ACCOUNT EXECUTIVE Appointment [facility] [address] [place] [address] John Drummond MD [address] [facility] [address] [place], [place] [phone] Health Maintenance Due Date Last Done Comments HIV SCREENING 1995 DTAP/TDAP/TD VACCINES (1 - Tdap) 1999 HEPATITIS B VACCINE (1 of 3 - 19+ 3-dose series) 1999 PNEUMOCOCCAL VACCINE (1 of 2 - PCV) 1999 DIABETES RETINOPATHY SCREENING 05/05/2018 DIABETES-FOOT EXAM WITH MONOFILAMENT 05/05/2018 DIABETES-HGB A1C 11/02/2018 05/05/2018, 04/30/2018 DIABETES-STATIN 2020 COVID-19 VACCINE (3 - season) 2023 06/27/2020, 06/03/2020 INFLUENZA VACCINE (#1) 2023 DEPRESSION SCREENING 03/19/2024 DIABETES - URINE PROTEIN SCREENING 03/19/2024 DIABETES-SERUM CREATININE 02/19/20252023, 09/23/2023, 11/10/2022, Additional history exists ZOSTER VACCINE (1 of 2) 2030 HEPATITIS C SCREENING Completed 01/24/2019 HIB VACCINE Aged Out No longer eligi ble based on patient's age to complete this topic HPV VACCINE Aged Out No longer eligi ble based on patient's age to complete this topic MENINGOCOCCAL (Group B) VACCINE Aged Out No longer eligible based on patient's age to complete this topic MENINGOCOCCAL VACCINE Aged Out No dalila amy eligible based on patient's age to complete this topic Procedures Procedure Name Priority Date/Time Associated Diagnosis Comments FLOW CYTOMETRY RITUXAN BLOOD Routine 02/20/2024 11:50 AM INSIDE SALES ACCOUNT EXECUTIVE MS (multiple sclerosis) (HCC) COMPREHENSIVE METABOLIC PANEL Routine 02/20/2024 11:50 AM INSIDE SALES ACCOUNT EXECUTIVE MS (multiple sclerosis) (HCC) CBC W AUTO DIFFERENTIAL Routine 02/20/2024 11:50 AM INSIDE SALES ACCOUNT EXECUTIVE MS (multiple sclerosis) (HCC) HEPATITIS C ANTIBODY Routine 01/24/2019 5:23 PM INSIDE SALES ACCOUNT EXECUTIVE Multiple sclerosis (HCC) HEMOGLOBIN A1C Routine 05/05/2018 3:48 AM INSIDE SALES ACCOUNT EXECUTIVE from Last 3 Months or Most Recently Relevant to Health Maintenance Results * FLOW CYTOMETRY RITUXAN BLOOD (02/20/2024 11:50 AM INSIDE SALES ACCOUNT EXECUTIVE) Reason for test MS (multiple sclerosis) (HCC) 340 02/20/2024 3:59 PM INSIDE SALES ACCOUNT EXECUTIVE [facility] Client Specimen ID # [id number] 02/20/2024 3:59 PM INSIDE SALES ACCOUNT EXECUTIVE [facility] Number of Markers 7 02/20/2024 3:59 PM INSIDE SALES ACCOUNT EXECUTIVE [facility] Flow Cytometry Results Differential Result Comment WBC Count /uL 4,900 % Lymphocytes 39 Lymphocyte Count u/L 1,911 Cell Region A: Lymphocytes Surface Marker Results % Absolute Count (cells/uL) CD3 79 1,510 CD3+CD4+ 52 994 CD3+CD8+ 26 497 CD4:CD8 Ratio 2.00 CD19 0 0 CD20 0 0 CD45 100 1,911 CD56 19 363 02/20/2024 3:59 PM [facility] Flow Cytometry Interpretation Testing is technical only and does not require an interpretation of results. 02/20/2024 3:59 PM [facility] Reference Range Adult Normal Reference Range Adult (> 18 years) CD3 54-84 % CD4 33-63 % CD8 12-39 % CD19 5-19 % CD56 6-26 % CD4+CD45RA+ 30-50 % CD4+CD45RO+ 17-42 % CD19+CD27+ 7-48 % CD19+CD27+IgD+ 7-29 % CD19+CD27+IgD- 3-23 % CD19+KU52-RlQ+ 29-93 % % 02/20/2024 3:59 PM [facility] Disclaimer Test performed at [facility], [address] [place] [address], [facility]. This test was developed and its performance [...] perform high complexity clinical testing. By law [place], CD4 lymphocyte counts on patients with HIV infection must be reported by the physician to the [facility] Health authority. 02/20/2024 3:59 PM [facility] Embedded Images 3:59 PM [facility] Blood BLOOD SPECIMEN / Unknown Lab Venipuncture / Unknown 02/20/2024 11:50 AM INSIDE SALES ACCOUNT EXECUTIVE 02/20/2024 1:58 PM INSIDE SALES ACCOUNT EXECUTIVE Joellen Albarado MD LAB - PATHOLOGY/CY TOLOGY ORDERABLES [facility] [address] [place] [address], [facility] [phone] * (ABNORMAL) CBC W/ DIFFERENTIAL (02/20/2024 11:50 AM INSIDE SALES ACCOUNT EXECUTIVE) WBC 4.9 4.0 - 10.7 x10E9/L 02/20/2024 12:06 PM [facility] RBC Count 6.32(H) 4.30 - 5.80 x10E12/L 02/20/2024 12:06 PM [facility] Hemoglobin 14.1 13.3 - 17.5 g/dL 02/20/2024 12:06 PM [facility] Hematocrit 45.6 38.7 - 51.1 % 02/20/2024 12:06 PM [facility] MCV 72.2(L) 80.0 - 98.0 fL 02/20/2024 12:06 PM [facility] MCH 22.3(L) 26.7 - 33.6 pg 02/20/2024 12:06 PM [facility] MCHC 30.9(L) 31.7 - 36.3 g/dL 02/20/2024 12:06 PM [facility] RDW-CV 18.2(H) 11.3 - 14.8 % 02/20/2024 12:06 PM [facility] Platelet Count 242 150 - 420 x10E9/L 02/20/2024 12:06 PM [facility] MPV 10.5 7.8 - 11.4 fL 02/20/2024 12:06 PM [facility] Neutrophil % 53.2 41.0 - 74.0 % 02/20/2024 12:06 PM [facility] Lymphocyte % 34.6 17.0 - 47.0 % 02/20/2024 12:06 PM [facility] Monocyte % 9.3 3.0 - 11.0 % 02/20/2024 12:06 PM [facility] Eosinophil % 1.9 0.0 - 7.0 % 02/20/2024 12:06 PM [facility] Basophil % 0.8 0.0 - 1.6 % 02/20/2024 12:06 PM [facility] Immature Granulocytes % 0.2 0.0 - 1.0 % 02/20/2024 12:06 PM [facility] Neutrophil Absolute 2.58 1.60 - 7.50 x10E9/L 02/20/2024 12:06 PM [facility] Lymphocyte Absolute 1.68 1.00 - 4.40 x10E9/L 02/20/2024 12:06 PM [facility] Monocyte Absolute 0.45 0.15 - 1.00 x10E9/L 02/20/2024 12:06 PM [facility] Eosinophil Absolute 0.09 0.00 - 0.60 x10E9/L 02/20/2024 12:06 PM [facility] Basophil Absolute 0.04 0.00 - 0.13 x10E9/L 02/20/2024 12:06 PM [facility] Blood BLOOD SPECIMEN / Unknown Lab Venipuncture / Unknown 02/20/2024 11:50 AM INSIDE SALES ACCOUNT EXECUTIVE 02/20/2024 12:00 PM [facility] Joellen Albarado MD LAB - HEMATOLOGY O RDERABLES [facility] [address] [place] [phone], [facility] [phone] * (ABNORMAL) COMPREHENSIVE METABOLIC PANEL (02/20/2024 11:50 AM INSIDE SALES ACCOUNT EXECUTIVE) BUN 11 7 - 26 mg/dL 02/20/2024 12:36 PM [facility] Creatinine 1.26(H) 0.71 - 1.16 mg/dL 02/20/2024 12:36 PM [facility] Sodium 142 136 - 145 mmol/L 02/20/2024 12:36 PM [facility] Potassium 4.0 3.5 - 4.5 mmol/L 02/20/2024 12:36 PM [facility] Chloride 106 98 - 107 mmol/L 02/20/2024 12:36 PM [facility] CO2 28 22 - 29 mmol/L 02/20/2024 12:36 PM [facility] Glucose 91 70 - 99 mg/dL 02/20/2024 12:36 PM INSIDE SALES ACCOUNT EXECUTIVE [facility] Calcium 9.0 8.4 - 10.2 mg/dL 02/20/2024 12:36 PM [facility] Protein Total 7.4 6.0 - 8.3 g/dL 02/20/2024 12:36 PM [facility] Albumin 3.9 3.4 - 5.0 g/dL 02/20/2024 12:36 PM [facility] Bilirubin Total 0.6 0.2 - 1.2 mg/dL 02/20/2024 12:36 PM [facility] Alkaline Phosphatase 54 40 - 150 U/L 02/20/2024 12:36 PM [facility] ALT 28 5 - 55 U/L 02/20/2024 12:36 PM [facility] AST 14 5 - 34 U/L 02/20/2024 12:36 PM [facility] Anion Gap 8 6 - 16 02/20/2024 12:36 PM [facility] BUN/Creatinine Ratio 9 7 - 23 02/20/2024 12:36 PM [facility] Osmolality Calculated 293 275 - 295 mOsm/kg 02/20/2024 12:36 PM [facility] Albumin/Globulin Ratio 1.1 1.1 - 2.3 02/20/2024 12:36 PM [facility] eGFR by CKD-EPI 73(L) >=90 mL/min/1.7 3 m2 02/20/2024 12:36 PM [facility] Blood BLOOD SPECIMEN / Unknown Lab Venipuncture / Unknown 02/20/2024 11:50 AM [facility] 02/20/2024 12:00 PM [facility] Joellen Albarado MD LAB - CHEMISTRY OR DERABLES [facility] [address] [place] [address], [facility] [phone] * HEPATITIS C ANTIBODY (01/24/2019 5:23 PM [facility]) Hepatitis C Antibody Non-react ame Non-reac tive 01/24/2019 6:14 PM [facility] Comment: Hepatitis C Antibody screen indicates no serologic evidence of past or current infection with Hepatitis C Virus. Patients with unexplained liver disease who are immunocompromised or suspected of having acute Hepatitis C infection may benefit from Nucleic Acid Test (ROLAND) for Hepatitis C Viral RNA to confirm Hepatitis C status. Blood BLOOD SPECIMEN / Unknown Lab Venipuncture / Unknown 01/24/2019 5:23 PM INSIDE SALES ACCOUNT EXECUTIVE 01/24/2019 5:34 PM INSIDE SALES ACCOUNT EXECUTIVE Arsh Wang MD LAB - CHEMISTRY ORDERABLES [address] [phone] * HEMOGLOBIN A1C (05/05/2018 3:48 AM INSIDE SALES ACCOUNT EXECUTIVE) [facility] Signature Hemoglobin A1c 6.4 % 05/06/2018 10:32 AM [facility] Comment:Hemoglobin variant d etected. Abnormal hemoglobin may not form glycated product at the same rate as hemoglobin A and/or hemoglobin variant may interfere with the accurate measurement of HbA1C. Consider measurement of HbA1C by alternative method. Recommend hemoglobin electrophoresis to evaluate the variant hemoglobin if clinically indicated. Estimated Average Glucose 137 mg/dL 05/06/2018 10:32 AM [facility] Comment: HbA1c Interpretation: Treatment target values recommended by ADA and other clinical organizations should be used to evaluate metabolic control in patients. Treatment Target Values: Normal : < 5.7% Pre-diabetes: 5.7-6.4% Diabetes: Equal to or greater than 6.5% Reference: [place] [employer] Association Standards of Care in Diabetes -2014 In patients 70 years and older consider HbA1c target range of 7.0-7.5% Reference: Diabetes Mellitus in Older People: Position Statement on behalf of the International Association of Gerontology and Geriatrics (IAGG), the Diabetes Working Alliance Party for Older People (EDWPOP), and the International Task Force of Experts in Diabetes. Melchor Bingham, et al. J [place] [employer] Association. 2012 Test results diagnostic of diabetes should be repeated for confirmation. The Sebia Capillary 2 assay for the measurement of HbA1c is a National Glycohemoglobin Standardization Program (NGSP)certified method. Blood BLOOD SPECIMEN / Unknown Lab Venipuncture / Unknown 05/05/2018 3:48 AM INSIDE SALES ACCOUNT EXECUTIVE 05/05/2018 3:54 AM INSIDE SALES ACCOUNT EXECUTIVE Magdiel Thompson MD LAB - CHEMISTRY [facility] Organization Address City/State/ZIP Co de Phone Number [address] [phone] from Last 3 Months or Most Recently Relevant to Health Maintenance Advance Directives * Full Code (Latest Code Status on File) Date Activated Date Inactivated Comments 05/05/2018 12:50 AM 05/09/2018 3:01 PM Care Teams Calciner Operator Helper Relationship Specialty Start Date End Date John Drummond MD [address] [place] [address] [address] [place] [address] PCP - General 04/16/18
--- OUTSIDE RECORDS SUMMARY | 2024-05-02 10:48 | XMS_ITS | Encounter Summary ---
Author Organization [facility] Address [address] [facility] [place] [address] Care Team Providers Care Parent Educator Name Role Phone John Drummond MD Primary Care Provider [phone] Reason for Visit * Reason Onset Date Comments Forms 02/04/2019 Encounter Details Date Type Department Care Team (Late st Contact Info) Description 02/04/2019 Telephone [facility] [address] [place] [address] Arsh Wang MD [address] [place] [phone] Forms Social History Tobacco Use Types Packs/Day Years Used Date Smoking Tobacco: Never Smokeless Tobacco: Never Alcohol Use Standard Drinks/Week Comments No 0 (1 standard drink = 0.6 oz pur e alcohol) Sex and Gender Information Value Date Recorded Sex Assigned at Not on file Gender Identity Not on file Sexual Orientation Not on file documented as of this encounter Functional Status Functional Status Response Date of [...] person have difficulty concentrating/remembering/making decisions? No 05/09/2018 documented as of this encounter Miscellaneous Notes * Telephone Encounter - Neli Villasenor RN - 02/17/2019 10:45 AM DETENTION WORKER Call to patient to obtain email or fax number to send [employer] Forms. Forms scanned and email to [email or web address] per patient request. Care Everywhere: [facility] (11/15/2018 10:24 AM CDT) [facility] (11/15/2018 10:24 AM CDT) INDEX VALUE 1.70 (H) ?? [facility] ?? JCV ANTIBODY POSITIVE (A) Comment: Index interpretive criteria: <0.20 negative ? 0.20-0.40 indeterminate >0.40 positive INTERPRETATION Negative: Antibodies to JCV not detected. Indeterminate: Low level reactivity detected, see ?Inhibition Assay result below for the final ?antibody result. 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 The STRATIFY JCV Antibody Test is an enzyme-linked immunosorbent assay (CANDACE) designed to detect JCV antibodies to help identify individuals who have been exposed to the virus. Samples with low level reactivity in the detection assay are retested in a confirmation (inhibition) assay to confirm ??presence or absence of JCV-specific antibodies. Retrospective analyses of post marketing data from various sources, including observational studies and spontaneous reports obtained worldwide, suggest that the risk of developing PML may be associated with relative levels of serum anti-JCV antibody as measured by anti-JCV antibody index.1 1TYSABRI(natalizumab)US Prescribing Information ?? NTION WORKER documented in this encounter Plan of Treatment Upcoming Encounters Date Type Department Care Team (Late st Contact Info) Description 05/23/2024 8:50 AM DETENTION WORKER Appointment [facility] [address] [place] [address] John Drummond MD [address] [address] documented as of this encounter Visit Diagnoses Not on filedocumented in this encounter Care Teams Parent Educator Relationship Specialty Start Date End Date John Drummond MD [address] [place] [phone] PCP - General 04/16/18 documented as of this encounter
--- OUTSIDE RECORDS SUMMARY | 2024-05-02 10:48 | XMS_ITS | Encounter Summary ---
Author Organization [facility] Address [facility] [place] [address] Care Team Providers Care Telecommunications Network Planner Name Role Phone John Drummond MD Primary Care Provider [phone] Encounter Details Date Type Department Care Team (Late st Contact Info) Description 05/27/2018 Hospital Follow-up Call [facility] [place] [place] [address] Maya Marquez RN Social History Tobacco Use Types Packs/Day Years [...] on file Legal Sex Male 12:42 PM COMMERCIAL REAL ESTATE PARALEGAL Gender Identity Not on file Sexual Orientation Not on file documented as of this encounter Functional Status * RETIRED Are you deaf or do you have serious difficulty hearing Answer Date of Assessment Author Status Yes 05/09/2018 3:12 PM COMMERCIAL REAL ESTATE PARALEGAL Activ e * RETIRED Are you blind or do you have serious difficulty seeing, even when wearing glasses? Answer Date of Assessment Author Status No 05/09/2018 3:12 PM COMMERCIAL REAL ESTATE PARALEGAL Activ e * Do you have serious difficulty walking or climbing stairs? Answer Date of Assessment Author Status No 05/09/2018 3:12 PM COMMERCIAL REAL ESTATE PARALEGAL Maya Marquez RN Active * Do you have difficulty dressing or bathing? Answer Date of Assessment Author Status No 05/09/2018 3:12 PM COMMERCIAL REAL ESTATE PARALEGAL Maya Marquez RN Active * Because of a physical, mental, or emotional condition, do you have difficulty doing errands alone such as visiting a doctor's office or shopping? Answer Date of Assessment Author Status No 05/09/2018 3:12 PM Maya Caban RN Active documented as of this encounter Mental Status * Because of a physical, mental, or emotional condition, do you have serious difficulty concentrating, remembering, or making decisions? Answer Entry Date Author Status No 05/09/2018 3:12 PM Maya Caban RN Active documented in this encounter Plan of Treatment Not on file documented as of this encounter Visit Diagnoses Not on filedocumented in this encounter Care Teams Telecommunications Network Planner Relationship Specialty Start Date End Date John Drummond MD [address] [place] [id number] PCP - General FAMILY PRACTICE 05/11/18 documented as of this encounter
--- OUTSIDE RECORDS SUMMARY | 2024-05-02 10:48 | XMS_ITS | Clinical Summary ---
Author Organization [facility] Address [address] [place] [address] Phone Care Team Providers Care Fence Post Cutter Name Role Phone John Drummond MD Primary Care Provider [phone] Allergies Active Allergy Reactions Criticality Noted Date Comments Shellfish Containing Products Nausea and Vomiting Medium 05/04/2018 Medications lisinopril (PRINIVIL) 20 mg tablet Take 10 mg by mouth daily. 9 Active tamsulosin (FLOMAX) 0.4 mg capsule TAKE 1 CAPSULE BY MOUTH ONCE DAILY AFTER A MEAL AT THE SAME TIME 9 Active baclofen (LIORESAL) 20 mg tablet TAKE 1 TABLET BY MOUTH ONCE DAILY 9 Active alcohol Pads, Medicated 8 Active baclofen (LIORESAL) 20 mg tablet TAKE 1 TABLET BY MOUTH TWICE DAILY 9 Active omeprazole (PriLOSEC) 20 mg Capsule, Delayed Release(E.C.) TAKE 1 CAPSULE BY MOUTH ONCE DAILY 30 MINUTES BEFORE MORNING MEAL 0 Active dalfampridine (AMPYRA) 10 mg Extended Release 12 hour tablet Take 10 mg by mouth 2 times daily. 2 Active folic acid (FOLVITE) 1 mg tabletIndicati ons:Iron deficiency anemia secondary to inadequate dietary iron intake Take 1/2 (one-half) tablet by mouth once daily 15 Tablet 5 Active folic acid (FOLVITE) 1 mg tabletIndicati ons:Iron deficiency anemia secondary to inadequate dietary iron intake Take 1/2 (one-half) tablet by mouth once daily 15 Tablet 4 04/24/19 25 Discontinued Active Problems Problem Noted Date Diagnosed Date Multiple sclerosis 2020 Type 2 diabetes mellitus 2020 Iron deficiency anemia 2020 Beta thalassemia trait 11/04/2018 Encounters Date Type Department Care Team Description 05/01/2024 Telephone [facility] Oncology and Hematology [facility] [address] [place] [address] Jarvis Braden MD labs for appointment 04/29/2024 External Device Data STL ABSTRACTION Provider, Abstract 04/24/2024 Refill [facility] Oncology and Hematology Jorge [address] [place] [address] Jarvis Braden MD Iron deficiency anemia secondary to inadequate dietary iron intake 04/09/2024 External Device Data STL ABSTRACTION Provider, Abstract 04/08/2024 External Device Data STL ABSTRACTION Provider, Abstract 02/19/2024 External Device Data STL ABSTRACTION Provider, Abstract 02/15/2024 Refill [facility] Oncology and Hematology - Jorge [address] [place] [address] Jarvis Braden MD Iron deficiency anemia secondary to inadequate dietary iron intake from Last 3 Months Family History Medical History Relation Name Comments Healthy Brother 1 Healthy Brother 2 Healthy Father Healthy Mother Healthy Sister 1 Healthy Sister 2 Relation Name Status Comments Brother 1 Alive Brother 2 Alive Father Alive Mother Alive Sister 1 Alive Sister 2 Alive Social History Tobacco Use Types Packs/Day Years Used Date Smoking Tobacco: Former Tobacco Cessation:Counseling Given: Not Answered Alcohol Use Standard Drinks/Week Comments No 0 (1 standard drink = 0.6 oz pur e alcohol) Sex and Gender Information Value Date Recorded Sex Assigned at Not on file Legal Sex Male 2:57 PM SOCIAL MEDIA ASSISTANT Gender Identity Not on file Sexual Orientation Not on file Last Filed Vital Signs Vital Sign Reading Time Taken Comments Blood Pressure 127/71 05/03/2023 1:56 PM SOCIAL MEDIA ASSISTANT Pulse 72 05/03/2023 1:56 PM SOCIAL MEDIA ASSISTANT Temperature 36.4 C (97.5 F) 05/03/2023 1:56 PM SOCIAL MEDIA ASSISTANT Respiratory Rate 16 05/03/2023 1:56 PM SOCIAL MEDIA ASSISTANT Oxygen Saturation 97% 05/03/2023 1:56 PM SOCIAL MEDIA ASSISTANT Inhaled Oxygen Concentration - - Weight 133.4 kg (294 lb) 05/03/2023 1:56 PM SOCIAL MEDIA ASSISTANT Height 190.5 cm (6' 3 ) 2020 1:25 PM SOCIAL MEDIA ASSISTANT Body Mass Index 36.75 2020 1:25 PM SOCIAL MEDIA ASSISTANT Plan of Treatment Upcoming Encounters Date Type Department Care Team (Late st Contact Info) Description 05/05/2024 1:00 PM SOCIAL MEDIA ASSISTANT Office Visit [facility] Oncology and Hematology - Jorge [address] [facility] [address] [place] [address] Jarvis Braden MD [address] [facility] [address] [place] [address] Health Maintenance Due Date Last Done Comments DIABETES ANNUAL FOOT EXAM 1998 DIABETES ANNUAL RETINAL EXAM 1998 DIABETES MICROALBUMIN ANNUAL SCREEN 1998 LDL CHOLESTEROL ANNUAL 1998 DTAP/TDAP/TD VACCINES (1 - Tdap) 1999 HEPATITIS B VACCINES (1 of 3 - 19+ 3-dose series) 1999 Preventative Visit-Managed Medicaid 1999 DIABETES HBA1C Q 6 MONTHS 11/02/20182018, 04/30/2018 INFLUENZA VACCINE (#1) 2023 HPV VACCINES Aged Out No longer eligi ble based on patient's age to complete this topic Insurance [facility] MEDICAID [facility] MEDICAID Care Teams Fence Post Cutter Relationship Specialty Start Date End Date John Drummond MD PCP - General Emergency Medicine 07/29/18
--- OUTSIDE RECORDS SUMMARY | 2024-05-02 10:48 | XMS_ITS | Encounter Summary ---
Author Organization [facility] Address [address] [place] [address] Care Team Providers Care Assurance Auditor Name Role Phone John Drmumond MD Primary Care Provider Reason for Visit * Reason Onset Date Comments labs for appointment 05/01/2024 Encounter Details Date Type Department Care Team (Late st Contact Info) Description 05/01/2024 Telephone [facility] Oncology and Hematology - Jorge [address] [facility] [address] [place] [address] Jarvis Braden MD [address] [facility] [address] [place] [address] labs for appointment Social History Tobacco Use Types Packs/Day Years Used Date Smoking Tobacco: Former Alcohol Use Standard Drinks/Week Comments No 0 (1 standard drink = 0.6 oz pur e alcohol) Sex and Gender Information Value Date Recorded Sex Assigned at Not on file Legal Sex Male 2:57 PM TELEGRAPH MECHANIC Gender Identity Not on file Sexual Orientation Not on file documented as of this encounter Miscellaneous Notes * Telephone Encounter - Soledad Slater - 05/01/2024 2:47 PM CST Talked with patient with appointment reminder and need for lab work. Patient stated he was doing toget done tomorrow at the infusion center in [address]. Patient stated understanding. GRAPH MECHANIC documented in this encounter Plan of Treatment Upcoming Encounters Date Type Department Care Team (Late st Contact Info) Description 05/05/2024 1:00 PM TELEGRAPH MECHANIC Office Visit [facility] Oncology and Hematology - Jorge [address] [facility] [address] [place] [address] Jarvis Braden MD [address] [facility] [address] [place] [address] documented as of this encounter Visit Diagnoses Not on filedocumented in this encounter Care Teams Assurance Auditor Relationship Specialty Start Date End Date John Drummond MD PCP - General Emergency Medicine 07/29/18 documented as of this encounter
[2024-05-02 16:07] LABS: Iron 75 ug/dL (49-181)
[2024-05-02 16:09] LABS: Anion Gap 9 mmol/L (4-12); Blood Urea Nitrogen 15 mg/dL (9-20); Calcium 8.8 mg/dL (8.4-10.2); Carbon Dioxide 29 mmol/L (22-30); Chloride 105 mmol/L (98-107); Estimated Glomerular Filt Rate > 60; Glucose 89 mg/dL (65-110); Potassium 4.1 mmol/L (3.4-5.0); Sodium 143 mmol/L (137-145)
[2024-05-02 16:17] LABS: Percent Iron Saturation 30 % (20-50)
== END 2024-05-02 10:33 | disposition home or self-care (01) ==
PROVIDERS: PCP Emergency Medicine; Visit Provider Internal Medicine Hematology & Oncology
DX: D50.8 Other iron deficiency anemias (principal)
CPT/HCPCS: 36415; 80048; 82728; 83540; 83550; 85027

== ENCOUNTER 2024-08-06 11:31 | Outpatient (CLI) | payer OTHER, SELFPAY ==
[2024-08-06 11:53] LABS: Basophils Absolute Auto 0.1 K/mm3 (0.0-0.1); Eosinophils Absolute Auto 0.1 K/mm3 (0-0.3); Eosinophils Percent Auto 1.6 % (0-4.4); Hemoglobin 13.3 g/dL (14.0-18.0); Immature Granulocyte Absolute 0.01 K/mm3 (0.00-0.031); Immature Granulocyte Percent A 0.2 % (0-0.5); Lymphocytes Absolute Auto 1.91 K/mm3 (0.9-3.2); Lymphocytes Percent Auto 37.1 % (18.3-44.2); Mean Corpuscular HGB Conc 30.9 g/dl (32-36); Mean Corpuscular Hemoglobin 22.7 pg (26-34); Mean Corpuscular Volume 73.4 fl (80-100); Mean Platelet Volume 10.4 fl (7.4-10.4); Monocytes Absolute Auto 0.5 K/mm3 (0.1-0.6); Monocytes Percent Auto 9.7 % (2.6-8.5); Neutrophils Absolute Auto 2.6 K/mm3 (1.3-6.7); Neutrophils Percent Auto 50.4 % (45.5-73.1); Platelet Count Result 244 k/mm3 (150-375); Red Blood Count 5.86 M/mm3 (4.6-6.20); White Blood Count 5.2 K/mm3 (4.5-10.0)
--- OUTSIDE RECORDS SUMMARY | 2024-08-06 11:53 | XMS_ITS | Encounter Summary ---
Author Organization [facility] Address [address] [place] [address] Care Team Providers Care Director Of Instruction Name Role Phone John Drummond MD Primary Care Provider [phone] Reason for Visit * Reason Onset Date Comments Forms/questionnaires 02/04/2019 Encounter Details Date Type Department Care Team (Late st Contact Info) Description 02/04/2019 Telephone [facility] [address] [place] [address] Arsh Wang MD [address] [place] [address] Forms/questionnaires Social History Tobacco Use Types Packs/Day Years Used Date Smoking Tobacco: Never Smokeless Tobacco: Never Alcohol Use Standard Drinks/Week Comments No 0 (1 standard drink = 0.6 oz pur e alcohol) Sex and Gender Information Value Date Recorded Sex Assigned at Not on file Legal Sex Male 9:57 AM FISHER QUAHOG Gender Identity Not on file Sexual Orientation Not on file 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 Answer Date of Assessment Author No 05/09/2018 1:02 PM Fernandez Cuevas RN * Is person blind or have serious difficulty seeing? Answer Date of Assessment Author No 05/09/2018 1:02 PM Fernandez Cuevas RN * Does person have serious difficulty walking/climbing stairs? Answer Date of Assessment Author Yes 05/09/2018 1:02 PM Fernandez Cuevas RN * Does person have difficulty dressing/bathing? Answer Date of Assessment Author Yes 05/09/2018 1:02 PM Fernandez Cuevas RN * Does person have difficulty doing errands alone? Answer Date of Assessment Author Yes 05/09/2018 1:02 PM Fernandez Cuevas RN documented as of this encounter Mental Status * Does person have difficulty concentrating/remembering/making decisions? Answer Entry Date Author No 05/09/2018 1:02 PM Fernandez Cuevas RN documented in this encounter Miscellaneous Notes * Telephone Encounter - Neli Villasenor RN - 02/17/2019 10:45 AM FISHER QUAHOG Call to patient to obtain email or fax number to send [employer] Forms. Forms scanned and email to [email or web address] per patient request. Care Everywhere: [facility] MISCELLANE[facility] (11/15/2018 10:24 AM CDT) [facility] M[facility] (11/15/2018 10:24 AM CDT) INDEX VALUE 1.70 (H) ?? [facility] ?? JCV ANTIBODY POSITIVE [...] anti-JCV antibody index.1 1TYSABRI(natalizumab)US Prescribing Information ?? ER QUAHOG documented in this encounter Plan of Treatment Upcoming Encounters Date Type Department Care Team (Late st Contact Info) Description 09/18/2024 11:30 AM CDT Appointment [facility] MRI [address] [place] [address] Joellen Albarado MD [address] [place] [address] 11/18/2024 11:00 AM CDT Office [facility] - Neurology [address] [facility] [place] [address] Joellen Albarado MD [address] [place] [address] 11/28/2024 9:00 AM CDT Appointment [facility] [address] [place] [address] John Drummond MD [address] [place] [address] documented as of this encounter Visit Diagnoses Not on filedocumented in this encounter Care Teams Director Of Instruction Relationship Specialty Start Date End Date John Drummond MD [address] [place] [place] [address] PCP - General 04/16/18 documented as of this encounter
--- OUTSIDE RECORDS SUMMARY | 2024-08-06 11:53 | XMS_ITS | Clinical Summary ---
Author Organization [facility] Address [address] [place] [address] Phone Care Team Providers Care Eyeglass Lens Cutter Name Role Phone John Drummond MD Primary Care Provider Allergies Active Allergy Reactions Criticality Noted Date Comments Shellfish Containing Products Nausea and Vomiting Medium 05/04/2018 Medications lisinopril (PRINIVIL) 20 mg tablet Take 10 mg by mouth daily. 05/07/2018 Active tamsulosin (FLOMAX) 0.4 mg capsule TAKE 1 CAPSULE BY MOUTH ONCE DAILY AFTER A MEAL AT THE SAME TIME 02/20/2019 Active baclofen (LIORESAL) 20 mg tablet TAKE 1 TABLET BY MOUTH ONCE DAILY 12/30/2018 Active alcohol Pads, Medicated 10/23/2017 Active baclofen (LIORESAL) 20 mg tablet TAKE 1 TABLET BY MOUTH TWICE DAILY 06/24/2018 Active omeprazole (PriLOSEC) 20 mg Capsule, Delayed Release(E.C.) TAKE 1 CAPSULE BY MOUTH ONCE DAILY 30 MINUTES BEFORE MORNING MEAL 12/12/2019 Active dalfampridine (AMPYRA) 10 mg Extended Release 12 hour tablet Take 10 mg by mouth 2 times daily. 03/13/2022 Active folic acid (FOLVITE) 1 mg tabletIndicatio ns:Iron deficiency anemia secondary to inadequate dietary iron intake Take 1/2 (one-half) tablet by mouth once daily 15 Tablet 04/24/2024 Active Active Problems Problem Noted Date Diagnosed Date Multiple sclerosis 2020 Type 2 diabetes mellitus 2020 Iron deficiency anemia 2020 Beta thalassemia trait 11/04/2018 Encounters Date Type Department Care Team Description 08/04/2024 Orders Only [facility] Oncology and Hematology - Jorge [address] [place] [address] Jarvis Braden MD Iron deficiency anemia secondary to inadequate dietary iron intake (Primary Dx) 07/01/2024 External Device Data STL ABSTRACTION Provider, Abstract 06/24/2024 External Device Data STL ABSTRACTION Provider, Abstract 06/17/2024 External Device Data STL ABSTRACTION Provider, Abstract 05/27/2024 External Device Data STL ABSTRACTION Provider, Abstract 05/27/2024 External Device Data STL ABSTRACTION Provider, Abstract 05/26/2024 External Device Data STL ABSTRACTION Provider, Abstract from Last 3 Months Family History Medical [...] on file Legal Sex Male 2:57 PM PARK GUARD Gender Identity Not on file Sexual Orientation Not on file Last Filed Vital Signs Vital Sign Reading Time Taken Comments Blood Pressure 127/71 05/03/2023 1:56 PM PARK GUARD Pulse 72 05/03/2023 1:56 PM PARK GUARD Temperature 36.4 C (97.5 F) 05/03/2023 1:56 PM PARK GUARD Respiratory Rate 16 05/03/2023 1:56 PM PARK GUARD Oxygen Saturation 97% 05/03/2023 1:56 PM PARK GUARD Inhaled Oxygen Concentration - - Weight 133.4 kg (294 lb) 05/03/2023 1:56 PM PARK GUARD Height 190.5 cm (6' 3 ) 2020 1:25 PM PARK GUARD Body Mass Index 36.75 2020 1:25 PM PARK GUARD Plan of Treatment Upcoming Encounters Date Type Department Care Team (Late st Contact Info) Description 08/07/2024 3:30 PM CDT Office Visit [facility] Oncology and Hematology - Jorge [address] [place] [address] Jarvis Braden MD [address] [facility] [address] [place] [address] Health Maintenance Due Date Last [...] patient's age to complete this topic Insurance Care Teams Eyeglass Lens Cutter Relationship Specialty Start Date End Date John Drummond MD PCP - General Emergency Medicine 07/29/18
--- OUTSIDE RECORDS SUMMARY | 2024-08-06 11:53 | XMS_ITS | Clinical Summary ---
Author Organization [facility] Address [address] [place] [address] Care Team Providers Care Wildlife Conservation Professor Name Role Phone John Drummond MD Primary Care Provider [phone] Source Comments [facility],non-owned Affiliates and Associated Physician Practices is amultiple site organization consisting of ambulatory clinics and hospital sitesin [place], [place], [place] and [place]. This disclosure is being madepursuant to the Care Everywhere program and may not contain all information available regarding this patient. Last updated 17[employer] [facility] Allergies Active Allergy Reactions Criticality Noted Date Comments Shellfish Allergy Nausea and/or Vomiting Medium 2018 Medications * Be aware that medications may not be up to date on this document. Alwaysverify current medications with the patient. folic acid (FOLVITE) 1 MG tablet Take 1 (one) tablet by mouth once daily Active sildenafil (REVATIO) 20 MG tablet Take 1 (one) tablet by mouth once daily as needed 1 Active lisinopril (Prinivil; Zestril) 10 MG tablet Take 1 (one) tablet by mouth once daily 3 Active baclofen (Lioresal) 10 MG tabletIndicatio ns:MS (multiple sclerosis) (HCC),Spasticit y Take 2 (two) tablets by mouth once daily May cause drowsiness. 60 tablet 11 4 Active dalfampridine ER (Ampyra) 10 MG tabletIndicatio ns:MS (multiple sclerosis) (HCC) Take 1 (one) tablet by mouth 2 times daily 180 tablet 4 5 Active dalfampridine ER (Ampyra) 10 MG tabletIndicatio ns:MS (multiple sclerosis) (HCC) Take 1 (one) tablet by mouth 2 times daily 180 tablet 4 4 07/18/19 25 Discontinu ed(Reorder ) Active Problems Problem Noted Date Diagnosed Date HTN (hypertension) 05/05/2018 DM (diabetes mellitus) 05/05/2018 Hyperlipidemia 05/05/2018 Low back pain 05/05/2018 MRSA (methicillin resistant staph aureus) cultur e positive 05/05/2018 Multiple sclerosis 05/01/2018 Encounters Date Type Department Care Team Description 07/17/2024 Refill [facility] - Neurology [address] [place] [address] Joellen Albarado MD MEDICATION REFILL 07/14/2024 Refill [facility] [address] [place] [address] Alejo Tomlin MD Refill Request 06/06/2024 8:37 AM CDT - 06/06/2024 11:59 PM CDT Hospital Encounter [facility] INFUSION CENTER [address] [place] [address] John Drummnod MD Discharge Disposition: Home or Self Care 05/23/2024 8:30 AM SHOP WORKER - 05/23/2024 11:59 PM SHOP WORKER Hospital Encounter [facility] [address] [place] [address] John Drummond MD Discharge Disposition: Home or Self Care 05/19/2024 10:00 AM SHOP WORKER Office Visit [facility] - Neurology [address] [place] [phone] Joellen Albarado MD Multiple sclerosis (Primary Dx); Chronic kidney disease, unspecified CKD stage; Abnormality of gait 05/19/2024 Travel 05/16/2024 Telephone [facility] - Neurology [address] [place] [address] Joellen Albarado MD Order from Last 3 Months Family History Medical [...] on file Legal Sex Male 9:57 AM SHOP WORKER Gender Identity Not on file Sexual Orientation Not on file 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 Not on file Not on file Last Filed Vital Signs Vital Sign Reading Time Taken Comments Blood Pressure 156/89 06/06/2024 8:44 AM CDT Pulse 72 06/06/2024 8:44 AM CDT Temperature 36.7 C (98 F) 06/06/2024 8:44 AM CDT Respiratory Rate 20 06/06/2024 8:44 AM CDT Oxygen Saturation 100% 06/06/2024 8:44 AM CDT Inhaled Oxygen Concentration - - Weight 141.7 kg (312 lb 6.4 oz) 06/06/2024 8:44 AM CDT Height 193 cm (6' 4 ) 08/31/2023 2:10 PM CDT Body Mass Index 38.03 08/31/2023 2:10 PM CDT Plan of Treatment Upcoming Encounters Date Type Department Care Team (Late st Contact Info) Description 09/18/2024 11:30 AM CDT Appointment [facility] MRI [address] [place] [address] Joellen Albarado MD [address] [place] [address] 11/18/2024 11:00 AM CDT Office Visit [facility] Physician Group - Neurology [address] [facility] [place] [address] Joellen Albarado MD [address] [place] [address] 11/28/2024 9:00 AM CDT Appointment [facility] [address] [place] [address] John Drummond MD [address] [facility] [address] [place] [address] Health Maintenance Due Date Last Done Comments HIV SCREENING 1995 DTAP/TDAP/TD VACCINES (1 - Tdap) 1999 HEPATITIS B VACCINE (1 of 3 - 19+ 3-dose series) 1999 PNEUMOCOCCAL VACCINE (1 of 2 - PCV) 1999 DIABETES RETINOPATHY SCREENING 05/05/2018 DIABETES-FOOT EXAM WITH MONOFILAMENT 05/05/2018 DIABETES-HGB A1C 11/02/2018 05/05/2018, 04/30/2018 DIABETES-STATIN 2020 COVID-19 VACCINE ( season) 2023 06/27/2020, 06/03/2020 DEPRESSION SCREENING 03/19/2024 DIABETES - URINE PROTEIN SCREENING 03/19/2024 INFLUENZA VACCINE (Season Ended) 2024 DIABETES-SERUM CREATININE 02/19/20252023, 09/23/2023, 11/10/2022, Additional history exists ZOSTER VACCINE (1 of 2) 2030 HEPATITIS C SCREENING Completed 01/24/2019 HIB VACCINE Aged Out No longer eligi ble based on patient's age to complete this topic HPV VACCINE Aged Out No longer eligi ble based on patient's age to complete this topic MENINGOCOCCAL (Group B) VACCINE SHARED DECISION-MAKING Aged Out No longer eligible based on patient's age to complete this topic MENINGOCOCCAL GROUPS A/C/Y/W VACCINE Aged Out No longer eligible based on patient's age to complete this topic Procedures Procedure Name Priority Date/Time Associated Diagnosis Comments COMPREHENSIVE METABOLIC PANEL Routine 02/20/2024 11:50 AM SHOP WORKER MS (multiple sclerosis) HEPATITIS C ANTIBODY Routine 01/24/2019 5:23 PM SHOP WORKER Multiple sclerosis HEMOGLOBIN A1C Routine 05/05/2018 3:48 AM SHOP WORKER from Last 3 Months or Most Recently Relevant to Health Maintenance Results * (ABNORMAL) COMPREHENSIVE METABOLIC PANEL (02/20/2024 11:50 AM [facility]) BUN 11 7 - 26 mg/dL 02/20/2024 [...] Lab Venipuncture / Unknown 02/20/2024 11:50 AM SHOP WORKER 02/20/2024 12:00 PM SHOP WORKER Result [facility] Joellen Albarado MD LAB - CHEMISTRY ORDERABLES Final Result Performing Organization Address City/[facility]/ZIP Co de Phone Number [facility] [address] [place] [address], [facility] [phone] * HEPATITIS C ANTIBODY (01/24/2019 5:23 PM SHOP WORKER) Pathologist [facility] Hepatitis C Antibody Non-react ame Non-reac tive 01/24/2019 6:14 PM [facility] Comment: Hepatitis C Antibody screen indicates no serologic evidence of past or current infection with Hepatitis C Virus. Patients with unexplained liver disease who are immunocompromised or suspected of having acute Hepatitis C infection may benefit from Nucleic Acid Test (ROLAND) for Hepatitis C Viral RNA to confirm Hepatitis C status. Blood BLOOD SPECIMEN / Unknown Lab Venipuncture / Unknown 01/24/2019 5:23 PM SHOP WORKER 01/24/2019 5:34 PM SHOP WORKER Result [facility] Asrh Wang MD LAB - CHEMI STRY ORDERABLES Final Result Performing Organization Address City/[facility]/ZIP Co de Phone Number [facility] [address] [place] [address], [facility] [phone] * HEMOGLOBIN A1C (05/05/2018 3:48 AM [facility]) Pathologist [facility] Hemoglobin A1c 6.4 % 05/06/2018 10:32 AM [...] Equal to or greater than 6.5% Reference: [place] [employer] Standards of Care in Diabetes -2014 In patients 70 years and older consider HbA1c target range of 7.0-7.5% Reference: Diabetes Mellitus in Older People: Position Statement on behalf of the International Association of Gerontology and Geriatrics (IAGG), the Diabetes Working Libertarian for Older People (EDWPOP), and the International Task Force of Experts in Diabetes. Melchor Bingham, et al. J [place] [employer] Association. 2012 Test results diagnostic of diabetes should be repeated for confirmation. The Sebia Capillary 2 assay for the measurement of HbA1c is a National Glycohemoglobin Standardization Program (NGSP)certified method. Blood BLOOD SPECIMEN / Unknown Lab Venipuncture / Unknown 05/05/2018 3:48 AM SHOP WORKER 05/05/2018 3:54 AM SHOP WORKER Magdiel Thompson MD LAB - CHEMISTRY ORDERABLES Final Result [address] [phone] from Last 3 Months or Most Recently Relevant to Health Maintenance Insurance [facility] Advance Directives * Full Code (Latest Code Status on File) Date Activated Date Inactivated Comments 05/05/2018 12:50 AM 05/09/2018 3:01 PM Care Teams Wildlife Conservation Professor Relationship Specialty Start Date End Date John Drummond MD [address] [facility] [address] [place], [place] [id number] PCP - General 04/16/18
[2024-08-06 12:57] LABS: Iron 58 ug/dL (49-181)
[2024-08-06 13:08] LABS: Percent Iron Saturation 22 % (20-50)
[2024-08-06 14:04] LABS: Folic Acid 7.8 ng/mL (2.76->20)
== END 2024-08-06 11:32 | disposition home or self-care (01) ==
LOC: ANHLAB 11:32
PROVIDERS: PCP Emergency Medicine; Visit Provider Internal Medicine Hematology & Oncology
DX: D50.8 Other iron deficiency anemias (principal)
CPT/HCPCS: 36415; 82607; 82728; 82746; 83540; 83550; 85025